=== PATIENT | male | born 1995 | race Two or more races ===

== ENCOUNTER 2025-04-12 05:20 | Inpatient (IN) | payer OTHER ==
[~2025-04-12] VITALS: Ht 182.9 cm; Wt 119.1 kg
[2025-04-12] VITALS (80 sets, daily range): BP systolic 96–155; BP diastolic 52–93; PULSE 91–155; RESP 16–27; TEMP 97.4–98.8; O2SAT 86–99
[2025-04-12] MEDS: PROPOFOL 100 ML IV ONE (05:29)
[2025-04-12] MEDS: SODIUM CHLORIDE 0.9% 1,000 ML IVB ONE (05:30)
[2025-04-12] MEDS: levETIRAcetam 1000 mg/100ml 100 ML IV ONE (05:30)
[2025-04-12] MEDS: PROPOFOL 100 ML IV SCH (05:30)
--- NOTE | 2025-04-12 05:34 | ED.PDOC ---
History of Present Illness HPI Comments 29-year-old, obese male who is brought in by ambulance from private residence for chief complaint of multiple seizures. Per EMS personnel report, patient has been seizing for the past 40 minutes, with no return of consciousness. Family on scene reported on patient being noncompliant with his Keppra medication, lately. On scene blood glucose value of 125. Patient was given 12.5 mg of Versed, IV fluids, and O2 via non-rebreather mask at 12 L/min. Upon arrival to ED, patient is still actively seizing. Further history is limited, due to patient's current condition and absence of family/patient care provider historians. Time Seen by MD: 05:15 Reviewed Notes: Nurses Notes, Automobile Leasing Supervisor Notes, Medications, Allergies (No allergies to medications) Information Source: Emergency Med Personnel Mode of Arrival: EMS Severity: Moderate Timing: Minutes Duration: Minutes Prehospital treatment: 12 Lead EKG, Accucheck, Animal Trainer Supervisor, IVF, Oxygen, Treatment (Versed) Past Medical History PAST MEDICAL HISTORY: Seizures (On Keppra) Surgical History: Unknown, Unobtainable Family History Family History: Unknown, Unobtainable Social History Smoker: Unknown, Unobtainable Alcohol: Unknown, Unobtainable Drugs: Unknown, Unobtainable Lives In: Home Constitutional: denies: chills, diaphoresis, fatigue, fever, malaise, sweats, weakness, others EENTM: denies: blurred vision, double vision, ear bleeding, ear discharge, ear drainage, ear pain, ear ringing, eye pain, eye redness, hearing loss, mouth pain, mouth swelling, nasal discharge, nose bleeding, nose congestion, nose pain, photophobia, tearing, throat pain, throat swelling, voice changes, others Respiratory: denies: cough, hemoptysis, orthopnea, SOB at rest, shortness of breath, SOB with excertion, stridor, wheezing, others Cardiovascular: denies: chest pain, dizzy spells, diaphoresis, Dyspnea on exertion, edema, irregular heart beat, left arm pain, lightheadedness, palpitations, PND, syncope, others Gastrointestinal: denies: abdomen distended, abdominal pain, blood streaked bowels, constipated, diarrhea, dysphagia, difficulty swallowing, hematemesis, melena, nausea, poor appetite, poor fluid intake, rectal bleeding, rectal pain, vomiting, others Genitourinary: denies: burning, dysuria, flank pain, frequency, hematuria, incontinence, penile discharge, penile sore, pain, testicle pain, testicle swelling, urgency, others Neurological: reports: seizure; denies: dizziness, fainting, headache, left sided numbness, left sided weakness, numbness, paresthesia, pre-existing deficit, right sided numbness, right sided weakness, speech problems, tingling, tremors, weakness, others Musculoskeletal: denies: back pain, gout, joint pain, joint swelling, muscle pain, muscle stiffness, neck pain, others Integumetry: denies: bruises, change in color, change in hair/nails, dryness, laceration, lesions, lumps, rash, wounds, others Allergic/Immunocompromised: denies: Difficulty Healing, Frequent Infections, Hives, Itching, others Hematologic/Lymphatic: denies: anemia, blood clots, easy bleeding, easy bruising, swollen glands, others Endocrine: denies: excessive hunger, excessive sweating, excessive thirst, excessive urination, flushing, intolerance to cold, intolerance to heat, unexplained weight gain, unexplained weight loss, others Psychiatric: denies: anxiety, bipolar disorder, depression, hopeless, panic disorder, schizophrenia, sleepless, suicidal, others All Other Systems: Reviewed and Negative Physical Exam General Appearance: Obese, Severe Distress, Other (Severe distress) HEENT: Pharynx Normal, TMs Normal, Other (Pupils are mid-range and responsive) Neck: Non-Tender, Normal, Normal Inspection Respiratory: Accessory Muscle Use, Chest Non-Tender, Respiratory Distress, R honchi Cardiovascular: No Edema, No JVD, No Murmur, No Gallop, Tachycardia Breast Exam: Deferred Gastrointestinal: No Organomegaly, Non Tender, No Pulsatile Mass, Normal Bowel Sounds, Soft Genitalia: Deferred Pelvic: Deferred Rectal: Deferred Extremities: No calf tenderness, Normal capillary refill, Normal range of motion, No pedal edema Musculoskeletal : Apperance: Normal Neurologic: tipple oiler II-XII nml as Tested, Motor Weakness, No Sensory Deficits, Other (Altered mental status) Cerebellar Function: Unable to Test Reflexes: Normal Skin: Dry, Pallor, Warm Lymphatic: No Adenopathy Was a procedure done? Was a procedure done?: Yes Sedation Sedation?: Yes Informed consent obtained: No Sedation start time: 05:20 Sedation end time: 05:25 Sedation total time: 5 minutes Intubation Indication: Respiratory Insufficiency, Altered Mental Status, Airway Protection Prep: Preoxygenation Pretreated with: Nothing Medicated with: Succinylcholine (100 mg), Other (20 mg of etomidate) Intubation Approach: Orotracheal (8.0) Intubation size: cm (25 cm at the lip) Informed consent obtained: No Risks/benefits/alt described: No Differential Dx Considerations may include: Status epilepticus, status seizures, anticonvulsant withdrawal, noncompliance, encephalopathy, among others X-Ray, Labs, Meds, VS Vital Signs Date Time Temp Pulse Resp B/P (MAP) Pulse Ox O2 Delivery O2 Flow Rate FiO2 04/12/25 05:33 100.8 166 16 125/62 94 100.8 Lab Test 04/12/25 05:30 Range/Units White Blood Count Pending Red Blood Count Pending Hemoglobin Pending Hematocrit Pending Mean Corpuscular Volume Pending Mean Corpuscular Hemoglobin Pending Mean Corpuscular Hemoglobin Concent Pending Red Cell Distribution Width Pending Platelet Count Pending Mean Platelet Volume Pending Neutrophils (%) (Auto) Pending Lymphocytes (%) (Auto) Pending Monocytes (%) (Auto) Pending Basophils (%) (Auto) Pending Neutrophils # (Auto) Pending Lymphocytes # (Auto) Pending Monocytes # (Auto) Pending Salicylates Level Pending Acetaminophen Level Pending Plasma/Serum Blood Alcohol Pending The patient is CBC and chemistry panel are pending The CAT scan of the head is pending The patient has a temperature of a 100.8 in his being given acetaminophen per rectum The patient is being sedated with Versed and propofol at this time. We did have to give the patient a dose of 40 mg succinylcholine x2 to stop the patient from removing the endotracheal tube NG tube has been placed. A Currie catheter has also been placed. Currently the patient is under seizure precautions. The patient was started on Keppra 1 g IV piggyback The patient will be sent over for a CAT scan of the head. We continue to monitor the patient's vital signs as he is on the ventilator The patient will be signed out to Dr. Hansen Images Reviewed?: Images reviewed and evaluated by me Time of 1ST Reevaluation: 05:45 Reevaluation 1ST: Unchanged Patient Education/Counseling: Pt Unresponsive Family Education/Counseling: No Family Present SEPSIS Sepsis Screen Physician Orders Complete Blood Count (04/12/25 05:27) Chest Portable (04/12/25 05:27) Pulse Oximetry (04/12/25 05:27) Blood Pressure (04/12/25 05:27) Currie Catheters (04/12/25 05:27) Blood Alcohol (04/12/25 05:27) Drug Screen (04/12/25 05:27) Heplock Iv (04/12/25 05:27) Seizure Precautions (04/12/25 05:27) Sodium Chloride 0.9% (04/12/25 05:30) Animal Trainer Supervisor (04/12/25 05:27) Electrocardigram (04/12/25 05:27) Head Without Contrast (04/12/25 05:27) Salicylate (04/12/25 05:27) Acetaminophen (04/12/25 05:27) Propofol (Diprivan) (04/12/25 05:30) Midazolam Drip 100 Mg/100ml Ns (Versed D (04/12/25 05:30) Rass Sedation Scale Q1HR (04/12/25 05:29) Ngt/Ogt (04/12/25 ) Communication Order (04/12/25 05:31) Currie Catheters (04/12/25 ) Ventilator Orders (04/12/25 05:34) Abg W/ Co-Ox (04/12/25 06:30) Respiratory Culture W/ Gs (04/12/25 05:34) Vital Signs Date Time Temp Pulse Resp B/P (MAP) Pulse Ox O2 Delivery O2 Flow Rate FiO2 04/12/25 05:33 100.8 166 16 125/62 94 100.8 Laboratory Tests Test 04/12/25 05:30 White Blood Count Pending Departure 1 Departure Time of Disposition: 05:50 Impression: Primary Impression: Status epilepticus Disposition: ADMITTED INPATIENT Admit to: ICU Condition: Critical Critical Care Note Critical Care Time?: Yes (45 min-critical care time only) Stability Stability form required: Yes Unstable for transfer: ICU, CCU, PCU, SHAYY (Intensive VS monitoring), May require CPR (possible rapid decline), ED Physician Assesment (Clinical assesment) Heart Score Heart Score: Heart Score Response (Comments) Value History N/A 0 EKG N/A 0 Age N/A 0 Risk Factors N/A 0 Troponin N/A 0 Total 0 I personally scribed for SHASHA HOWARD MD ([email or web address]) on 04/12/25 at 05:34. Electronically submitted by Taiwo Israel [email or web address]). SHASHA HOWARD MD Apr 12, 2025 05:34
[2025-04-12] MEDS: MIDAZOLAM DRIP 100 mg/100mL NS 100 ML IV SCH (05:45)
[2025-04-12 05:56] LABS: Hematocrit 49.3 % (41.0-53.0); Hemoglobin 16.5 g/dL (13.5-17.5); Mean Corpuscular Hemoglobin 29.6 pg (28.0-32.0); Mean Corpuscular Volume 88.3 fL (80.0-100.0)
[2025-04-12 06:04] LABS: Salicylate < 3.0 mg/dL (-30)
[2025-04-12 06:05] LABS: Acetaminophen < 2.0 UG/ML (10.0-20.0)
[2025-04-12] MEDS: MIDAZOLAM DRIP 100 mg/100mL NS 100 ML IV ONE (06:07)
--- NOTE | 2025-04-12 06:08 | DVH ---
CHEST RADIOGRAPH Indication: seizure Technique: Single frontal view of the chest was obtained COMPARISON: None FINDINGS: Lines and Tubes: Endotracheal tube is slightly low in position projecting towards the right mainstem bronchus. Recommend retraction. Possible enteric catheter in the midesophagus. Repositioning required. Lungs: Increased interstitial prominence. This may represent pulmonary vascular congestion and/or viral pneumonia. Pleura: No effusion.No pneumothorax. Cardiomediastinal contours: Cardiomegaly. Bones: Unremarkable IMPRESSION: Endotracheal tube is slightly low in position projecting towards the right mainstem bronchus. Recommend retraction, 1 cm. Possible enteric catheter in the midesophagus. Repositioning required. Cardiomegaly. Increased interstitial prominence. This may represent pulmonary vascular congestion and/or viral pneumonia.
[2025-04-12 06:52] LABS: Base Excess -7.9 mmol/L (-2.0-3.0)
--- NOTE | 2025-04-12 07:16 | ECG ---
[facility] Test Date: 2025-04-12 Test Time: 06:04:34 Pat Name: STEFANY GRIGGS Department: ED Room: [address] [place] [address] Gender: M Business Process Specialist: : 1995 Requested By: SHASHA HOWARD Order Number: [id number] Reading MD: Giovani Trevino Measurements Intervals [place] Rate: 144 P: 63 SD: 106 QRS: 120 QRSD: 101 T: -32 QT: 290 QTc: 449 Interpretive Statements Sinus tachycardia Repol abnrm, probable ischemia, inferior lds ST elevation, consider lateral injury Electronically Signed On 04-14-2025 17:45:26 PST by Giovani Trevino Please click the below link to view image of tracing.
[2025-04-12] MEDS ORDERED: fentaNYL Drip 2500mCg/250mlNS 250 ML IV SCH (07:30)
--- NOTE | 2025-04-12 07:41 | DVH ---
CLINICAL INFORMATION: Seizure. TECHNIQUE: Axial imaging was obtained through the brain without contrast. Coronal and sagittal reformatted images were obtained, reviewed, and stored. Images were reviewed in brain and bone windows. All CT scans at this medical facility are performed using dose modulation techniques as appropriate to a performed exam including the following: Automated exposure control was utilized; adjustment of the MA and/or KV according to patient size; and use of iterative reconstruction technique. CTDIvol = 66.07 mGy DLP = 1189.65 mGy-cm COMPARISON: None FINDINGS: Artifacts limit evaluation. There is no evidence of .acute intracranial hemorrhage. There is encephalomalacia involving the left temporal lobe and left frontal lobe. Scattered areas of hypoattenuation are seen in the periventricular and subcortical white matter, which are nonspecific but most likely sequelae of small vessel ischemic disease. Slightly more focal small areas of encephalomalacia in the right frontal lobe. No midline shift. The ventricles and sulci are within normal limits in size for age. Basal cisterns are patent. There are small focal areas of calcification or ossification along the inner table of the left frontal calvarium measuring up to 0.5 cm and 0.6 cm, respectively, possibly osteomas or small calcified meningiomas. Mild mucosal thickening of the paranasal sinuses. Mastoid air cells are clear. IMPRESSION: 1. Limited examination due to artifact. 2. No evidence of acute intracranial hemorrhage. 3. Sequelae of prior ischemia as described above, with chronic appearance. Superimposed acute or subacute ischemia can not be excluded in the appropriate clinical setting. Correlate with clinical findings. 4. Small focal areas of calcification or ossification along the inner table of the left frontal calvarium, possible osteomas or small calcified meningiomas. If clinically indicated, MRI without and with contrast could be considered to further characterize. 5. Additional nonacute findings as described above.
[2025-04-12 07:44] LABS: Albumin 4.7 g/dL (3.2-4.8); Calcium 9.4 mg/dL (8.7-10.4); Chloride 104 mmol/L (98-107); Potassium 4.5 mmol/L (3.5-5.1); Sodium 143 mmol/L (136-145); Total Protein 7.9 g/dL (5.7-8.2)
[2025-04-12] MEDS: fentaNYL Drip 2500mCg/250mlNS 250 ML IV SCH (07:45)
[2025-04-12 07:46] LABS: Alanine Aminotransferase 48 U/L (7-40); Alkaline Phosphatase 136 U/L (46-116); Bilirubin, Total 0.2 mg/dL (0.2-1.0); Glucose 255 mg/dL (74-106)
[2025-04-12 07:47] LABS: Anion Gap 23 (5-15); BUN/Creatinine Ratio 9.0 (10.0-20.0); Blood Urea Nitrogen 13 mg/dL (9-23); Carbon Dioxide 16 mmol/L (20-31)
[2025-04-12] MEDS ORDERED: NITROGLYCERIN 0.4 MG SL TAB SL PRN (08:15)
[2025-04-12] MEDS ORDERED: DOCUSATE SOD 100 MG CAP PO PRN (08:15)
[2025-04-12] MEDS ORDERED: ONDANSETRON HCL 4 MG/2 ML VIAL IV PRN (08:15)
[2025-04-12] MEDS ORDERED: MORPHINE SULFATE INJ 2 MG/ml SYRG IV PRN (08:15)
[2025-04-12 08:17] LABS: Total Cells Counted 100.0 (100)
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
[2025-04-12 08:41] LABS: Cannabinoid Screen, Urine Pos (NEGATIVE)
[2025-04-12 08:42] LABS: Amphetamine Screen, Urine Neg (NEGATIVE); Barbiturate Scree,Urine Neg (NEGATIVE); Benzodiazephine Screen, Urine Pos (NEGATIVE); Cocaine Screen, Urine Neg (NEGATIVE); Opiate Scree,Urine Neg (NEGATIVE); Phencyclidine Screen, Urine Neg (NEGATIVE)
[2025-04-12] MEDS: ENOXAPARIN SOD 40 MG/0.4 ML SYRINGE SC SCH (09:11)
[2025-04-12] MEDS: PANTOPRAZOLE 40 MG/10 ML VIAL INJ IV SCH (09:11)
[2025-04-12] MEDS: SODIUM CHLORIDE 0.9% 1,000 ML IV ONE (09:30)
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
[2025-04-12] MEDS: SOD CHL 0.45% 1,000 ML IV SCH (11:20)
[2025-04-12 13:01] LABS: Potassium 4.6 mmol/L (3.5-5.1); Sodium 144 mmol/L (136-145)
[2025-04-12 13:02] LABS: Anion Gap 11 (5-15); Carbon Dioxide 22 mmol/L (20-31)
[2025-04-12 13:03] LABS: Calcium 9.0 mg/dL (8.7-10.4)
[2025-04-12 13:06] LABS: Chloride 111 mmol/L (98-107)
[2025-04-12 13:07] LABS: Glucose 87 mg/dL (74-106)
[2025-04-12 13:08] LABS: BUN/Creatinine Ratio 7.6 (10.0-20.0); Blood Urea Nitrogen 12 mg/dL (9-23)
--- NOTE | 2025-04-12 13:30 | DVHPN2 ---
Subjective Patient intubated and sedated. Reviewed: Care Plan, H&P, Labs, Medications Changes from previous H/P or p: No Changes General: Per HPI Objective Vitals Vital Signs Date Time Temp Pulse Resp B/P (MAP) Pulse Ox O2 Delivery O2 Flow Rate FiO2 04/12/25 12:00 108 04/12/25 11:50 98.8 22 129/83 (98) 98 98.8 04/12/25 11:50 Mechanical Ventilator+ 30 30 General Appearance: Alert, Oriented X3, Cooperative HEENT: Atraumatic, PERRLA Lungs: Clear to auscultation, Normal air movement Cardiovascular: Normal S1, Normal S2 Abdomen: Normal bowel sounds, Soft, No tenderness, No hepatospenomegaly Musculoskeletal: Normal sensory function, Normal motor function Skin: Dry, Intact Psych/Mental Status: Mental status NL, Mood NL Medications Current Medications Medications Dose Ordered Sig/Keri Route Start Time Stop Time Status Last Admin Dose Admin Propofol 100 ml @ 4.08 mls/hr Q24H IV 04/12/25 05:30 04/12/25 11:36 40.8 MLS/HR Midazolam HCl 100 ml @ 1 mls/hr Q24H IV 04/12/25 05:30 04/12/25 11:17 15 MLS/HR Fentanyl Citrate 250 ml @ 2.5 mls/hr Q24H IV 04/12/25 07:30 04/12/25 07:45 2.5 MLS/HR Fentanyl Citrate 250 ml @ 2.5 mls/hr Q24H IV 04/12/25 07:30 UNV Ondansetron HCl 4 mg Q4HP PRN IV 04/12/25 08:15 Docusate Sodium 100 mg BIDPRN PRN PO 04/12/25 08:15 Enoxaparin Sodium 40 mg DAILY SC 04/12/25 10:00 04/12/25 09:11 40 MG Acetaminophen 650 mg Q6HP PRN PO 04/12/25 08:15 Nitroglycerin 0.4 mg Q5MINP PRN SL 04/12/25 08:15 Morphine Sulfate 2 mg Q30M PRN IV 04/12/25 08:15 Pantoprazole Sodium 40 mg DAILY IV 04/12/25 10:00 04/12/25 09:11 40 MG Levetiracetam 100 ml @ 400 mls/hr BID IV 04/12/25 22:00 Sodium Chloride 1,000 ml @ 100 mls/hr Q10H IV 04/12/25 09:45 04/12/25 11:20 100 MLS/HR Ceftriaxone Sodium 50 ml @ 100 mls/hr DAILY@09 IV 04/13/25 09:00 Laboratory Results Laboratory Tests 04/12/25 05:30 04/12/25 12:46 Chemistry Test 04/12/25 05:30 04/12/25 12:46 Albumin 4.7 g/dL (3.2-4.8) Calcium Level 9.4 mg/dL (8.7-10.4) 9.0 mg/dL (8.7-10.4) Total Protein 7.9 g/dL (5.7-8.2) LFT Test 04/12/25 05:30 Alanine Aminotransferase (ALT) 48 U/L (7-40) H Alkaline Phosphatase 136 U/L (46-116) H Aspartate Amino Transferase (AST) 36 U/L (13-40) Total Bilirubin 0.2 mg/dL (0.2-1.0) HgA1c, TSH Test 04/12/25 05:30 04/12/25 09:34 Hemoglobin A1c 5.2 % A1C (<5.7) Thyroid Stimulating Hormone (TSH) 2.09 uIU/mL (0.55-4.78) Blood Gas Results Test 04/12/25 06:31 Arterial Blood pH 7.225 (7.350-7.450) FiO2 % 100.0 Labs and/or images reviewed: Labs reviewed by me, Image(s) reviewed by me Assessment/Plan Assessment/Plan Impression: -breakthrough seizures -history of epilepsy after having traumatic brain injury -obesity -questionable medication noncompliance -leukocytosis, rule out sepsis -acute kidney injury, vasomotor nephropathy Plan: -neurology consultation: Recommendations reviewed, MRI pending -continue IV Keppra -continue IV fluids -change vent settings given metabolic and respiratory acidosis. AC 20, tidal volume 500, peep of five -PPI -empiric antibiotic therapy -repeat labs, chest x-ray, ABG in a.m. Critical care time spent with patient discussing and formulating plan of care: 40 minutes. This does not include time spent performing procedures. This medical document was created using an electronic medical record system with Dragon computerized dictation system. Although this document has been carefully reviewed, there may still be some phonetic and typographical errors. These areas are purely typographical due to imperfections of the software programs, and do not reflect any compromise in the patient's medical care. Plan discussed with: Patient, Other (RN) My Orders Orders - VINITA BECKETT NP Procedure Category Date Status Time Ventilator Orders RT 04/12/25 Transmitted 11:26 Mrsa Screen PAUL 04/12/25 Logged 11:54 * Wound Consult CONS 04/12/25 Transmitted * Dietary Consult CONS 04/12/25 Transmitted 12:59 Date of Service: Apr 12, 2025 Billing Provider: VINITA BECKETT NP Common Visit Codes: [id number] DISCH DAY >30min VINITA BECKETT NP Apr 12, 2025 13:30
--- NOTE | 2025-04-12 15:27 | DVH ---
EXAM: MRI BRAIN HEAD WO CONTRAST HISTORY: Seizure, abnormal CT head TECHNIQUE: Multiplanar and multisequence MR imaging of the head was performed. COMPARISON: CT HEAD WITHOUT CONTRAST on DOS: 04/12/25 FINDINGS: There is encephalomalacia and gliosis in the anterior left frontal lobe and the anterior and mid left temporal lobe. There is gliosis along a prior shunt tract in the right frontal lobe. The ventricles and subarachnoid spaces are otherwise normal in size and configuration. There is no midline shift or mass effect. The vascular flow-voids are unremarkable. Diffusion weighted imaging is not indicative of acute or recent infarct. Mild paranasal sinus mucosal thickening. There is endotracheal tube in the visualized oral cavity. IMPRESSION: 1. No acute or recent infarct. 2. Encephalomalacia and gliosis in the anterior left frontal lobe and in the anterior and mid left temporal lobe which could be from remote infarct or remote contusion injury. 3. Linear gliosis along a prior shunt tract in the right frontal lobe.
[2025-04-12] MEDS: levETIRAcetam 1000 mg/100ml 100 ML IV SCH (21:45)
[2025-04-13] VITALS (115 sets, daily range): BP systolic 91–166; BP diastolic 43–102; PULSE 94–121; RESP 17–36; TEMP 98.2–99.9; O2SAT 88–98
[2025-04-13 04:30] LABS: Hematocrit 43.1 % (41.0-53.0); Hemoglobin 15.0 g/dL (13.5-17.5); Mean Corpuscular Hemoglobin 29.8 pg (28.0-32.0); Mean Corpuscular Volume 85.8 fL (80.0-100.0); Nucleated Red Blood Cells % 0.1 %
--- NOTE | 2025-04-13 04:46 | DVH ---
CHEST RADIOGRAPH Indication: ETT placement Technique: Single frontal view of the chest was obtained COMPARISON: XY CHEST PORTABLE on DOS: 04/12/25 FINDINGS: Lines and Tubes: Endotracheal tube and enteric catheter in satisfactory position. Lungs: Low lung volumes. Diffuse increased interstitial prominence, unchanged. Pleura: No effusion. No pneumothorax. Cardiomediastinal contours: Unremarkable Bones: Unremarkable IMPRESSION: Endotracheal tube and enteric catheter in satisfactory position.
[2025-04-13 04:53] LABS: Albumin 4.0 g/dL (3.2-4.8); Alkaline Phosphatase 92 U/L (46-116); Anion Gap 13 (5-15); BUN/Creatinine Ratio 8.0 (10.0-20.0); Bilirubin, Total 0.4 mg/dL (0.2-1.0); Blood Urea Nitrogen 18 mg/dL (9-23); Calcium 9.0 mg/dL (8.7-10.4); Carbon Dioxide 23 mmol/L (20-31); Glucose 92 mg/dL (74-106); Potassium 4.5 mmol/L (3.5-5.1); Total Protein 6.8 g/dL (5.7-8.2)
[2025-04-13 05:00] LABS: Alanine Aminotransferase 79 U/L (7-40); Chloride 110 mmol/L (98-107); Sodium 146 mmol/L (136-145)
[2025-04-13 07:58] LABS: Base Excess -4.9 mmol/L (-2.0-3.0)
--- NOTE | 2025-04-13 09:54 | DVHPN2 ---
Progress Note - Dictate Date Seen: Apr 13, 2025 Medical Necessity Reason Pt with a Central, PICC or Fol: Yes The following are medically ne: Currie Catheter Subjective Mr. Hernandez is a 29 years old right-handed gentleman with a history of closed head trauma, obesity, he was admitted on 04/12/2025 with a chief complaint of frequent seizure activity I have seen and examined the patient, I have talked to his nurse, no seizure activity noticed, the patient is sedated intubated, nonresponsive to strong painful stimuli Fentanyl 100 mcg/hour, Versed 50 mg/hour, propofol 40 mcg/minute, Plasma alcohol, 04/12/2025: <3 ABG, 04/12/2025: Combined respiratory and metabolic acidosis, 04/13/2025: Hypoxia, metabolic acidosis WBC/HB/PLT/MCV, 04/16/2025: 22.8/16.5/346/88.3 BUN/CR, 04/12/2025: 13/1.45 GFR, 04/12/2025: 68 TBI/AST/ALT/AP, 04/12/2025: 0.2/36/48/136 Chest x-ray, 04/12/2025: Increased interstitial prominence. This may represent pulmonary vascular congestion and/or viral pneumonia. CT head, 04/12/2025: 1. Limited examination due to artifact. 2. No evidence of acute intracranial hemorrhage. 3. Sequelae of prior ischemia as described above, with chronic appearance. Superimposed acute or subacute ischemia can not be excluded in the appropriate clinical setting. Correlate with clinical findings. 4. Small focal areas of calcification or ossification along the inner table of the left frontal calvarium, possible osteomas or small calcified meningiomas. If clinically indicated, MRI without and with contrast could be considered to further characterize. 5. Additional nonacute findings as described above. (There is encephalomalacia involving the left temporal lobe and left frontal lobe) MR head, 04/12/25: 1. No acute or recent infarct. 2. Encephalomalacia and gliosis in the anterior left frontal lobe and in the anterior and mid left temporal lobe which could be from remote infarct or remote contusion injury. 3. Linear gliosis along a prior shunt tract in the right frontal lobe. vital signs Vital Sign Date Time Temp Pulse Resp B/P (MAP) Pulse Ox O2 Delivery O2 Flow Rate FiO2 04/13/25 08:16 102 20 116/63 (80) 93 30 04/13/25 05:52 Mechanical Ventilator+ 04/13/25 04:00 99.2 99.2 Total Intake and Output 04/12/25 04/12/25 04/13/25 15:00 23:00 07:00 Intake Total 1714.8 ml 1808.98 ml 1103.48 ml Output Total 600 ml 2100 ml 2100 ml Balance 1114.8 ml -291.02 ml -996.52 ml medications Current Medications Medications Dose Ordered Sig/Keri Route Start Time Stop Time Status Last Admin Dose Admin Propofol 100 ml @ 4.08 mls/hr Q24H IV 04/12/25 05:30 04/13/25 07:13 32.64 MLS/HR Midazolam HCl 100 ml @ 1 mls/hr Q24H IV 04/12/25 05:30 04/13/25 05:06 15 MLS/HR Fentanyl Citrate 250 ml @ 2.5 mls/hr Q24H IV 04/12/25 07:30 04/13/25 07:14 10 MLS/HR Fentanyl Citrate 250 ml @ 2.5 mls/hr Q24H IV 04/12/25 07:30 UNV Ondansetron HCl 4 mg Q4HP PRN IV 04/12/25 08:15 Docusate Sodium 100 mg BIDPRN PRN PO 04/12/25 08:15 Enoxaparin Sodium 40 mg DAILY SC 04/12/25 10:00 04/13/25 08:55 40 MG Acetaminophen 650 mg Q6HP PRN PO 04/12/25 08:15 Nitroglycerin 0.4 mg Q5MINP PRN SL 04/12/25 08:15 Morphine Sulfate 2 mg Q30M PRN IV 04/12/25 08:15 Pantoprazole Sodium 40 mg DAILY IV 04/12/25 10:00 04/13/25 08:54 40 MG Levetiracetam 100 ml @ 400 mls/hr BID IV 04/12/25 22:00 04/13/25 08:54 400 MLS/HR Sodium Chloride 1,000 ml @ 100 mls/hr Q10H IV 04/12/25 09:45 04/13/25 05:25 100 MLS/HR Ceftriaxone Sodium 50 ml @ 100 mls/hr DAILY@09 IV 04/13/25 09:00 04/13/25 08:54 100 MLS/HR Albuterol 2.5 mg Q6HR NEB 04/13/25 12:00 UNV Ipratropium [place] 0.5 mg Q6HR NEB 04/13/25 12:00 UNV objective The patient is well-nourished and well-developed with no distress. The patient is intubated MENTAL STATUS: Subjective CRANIAL NERVES: Pupils are equal, round and nonreactive, very small. There are corneal reflexes and doll's eyes phenomenon. No signs of facial weakness. There are no gagging or coughing reflexes SENSATION: Nonresponsive to strong painful stimuli MOTOR: Normal tone in the upper and lower extremity. Normal muscle bulk. No fasciculations. No spontaneous movement. REFLEXES: Deep tendon reflexes are symmetrical. No pathological reflexes. 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 Poor compliance Acute respiratory failure Metabolic and respiratory acidosis secondary to status epileptics Acute respiratory failure Leukocytosis, to rule out sepsis Assessment/Plan Monitoring Supportive treatment ICU care Follow-up labs EEG Stabilize vitals/pressor drip Respiratory support/vent management Oxygen Keppra 1000 mg b.i.d. Ativan for seizure breakthrough IV antibiotics More recommendation per clinical course This medical document was created using an electronic medical record system with [employer] dictation system. Although this document has been carefully reviewed, there may still be some phonetic and typographical errors. These areas are purely typographical due to imperfections of the software programs, and do not reflect any compromise in the patient's medical care. Prognosis Poor Dietary Evaluation Review Comments: Nutrition Recommendation: 1) EN Vital High Protein @ 40ml/hr x 24hr (goal) along with Pro-stat 1 pk BID. Water flush 50ml Q6H if allowed, adjust PRN. TF at goal volume along with propofol & Pro-stat provide 2022 kcal (100%), 114 gm protein (78%), and 1003 ml free water(including flush). 2) TPN if NPO >7 days 3) Monitor NPO status, lab values, weight trend, and I/O Expected Outcomes/Goals: Intake to meet >75% estimated needs FU 2-3 days Plan discussed with: Other Critical Care Time(min): 35 JEREMY SPENCER MD Apr 13, 2025 09:54
--- NOTE | 2025-04-13 10:53 | DVHPN2 ---
Subjective Patient intubated and sedated. Reviewed: Care Plan, H&P, Labs, Medications Changes from previous H/P or p: No Changes General: Per HPI Eyes: No Pain, No Vision change, No Conjunctivae inflammation, No Eyelid inflammation, No Other, No Redness ENT: No Ear pain, No Ear discharge, No Nose pain, No Nose discharge, No Nose congestion, No Mouth pain, No Mouth swelling, No Throat pain, No Throat swelling, No Other Cardiovascular: No Chest Pain, No Palpitations, No Orthopnea, No Paroxysmal Noc. Dyspnea, No Edema, No Lt Headedness, No Other Respiratory: No Cough, No Dry, No Shortness of breath, No SOB with excertion, No Wheezing, No Hemoptysis, No Pleuritic Pain, No Sputum, No Other Gastrointestinal: No Nausea, No Vomiting, No Abdominal Pain, No Diarrhea, No Constipation, No Melena, No Hematochezia, No Other Genitourinary: No Dysuria, No Frequency, No Incontinence, No Hematuria, No Retention, No Other Musculoskeletal: No other, No neck pain, No shoulder pain, No arm pain, No back pain, No hand pain, No leg pain, No foot pain Skin: No Rash, No Lesions, No Jaundice, No Bruising, No Other Objective Vitals Vital Signs Date Time Temp Pulse Resp B/P (MAP) Pulse Ox O2 Delivery O2 Flow Rate FiO2 04/13/25 10:30 94/58 04/13/25 10:25 96 20 95 30 04/13/25 10:00 Mechanical Ventilator+ 04/13/25 04:00 99.2 99.2 Intake/Output Intake and Output 04/13/25 07:00 Intake Total 4627.26 ml Output Total 4800 ml Balance -172.74 ml Intake Oral 0 ml IV Total 4627.26 ml Output Urine Total 4800 ml General Appearance: Alert, Oriented X3, Cooperative HEENT: Atraumatic, PERRLA Lungs: Clear to auscultation, Normal air movement Cardiovascular: Normal S1, Normal S2 Abdomen: Normal bowel sounds, Soft, No tenderness, No hepatospenomegaly Musculoskeletal: Normal sensory function, Normal motor function Skin: Dry, Intact Psych/Mental Status: Mental status NL, Mood NL Medications Current Medications Medications Dose Ordered Sig/Keri Route Start Time Stop Time Status Last Admin Dose Admin Propofol 100 ml @ 4.08 mls/hr Q24H IV 04/12/25 05:30 04/13/25 10:22 32.64 MLS/HR Midazolam HCl 100 ml @ 1 mls/hr Q24H IV 04/12/25 05:30 04/13/25 05:06 15 MLS/HR Fentanyl Citrate 250 ml @ 2.5 mls/hr Q24H IV 04/12/25 07:30 04/13/25 07:14 10 MLS/HR Fentanyl Citrate 250 ml @ 2.5 mls/hr Q24H IV 04/12/25 07:30 UNV Ondansetron HCl 4 mg Q4HP PRN IV 04/12/25 08:15 Docusate Sodium 100 mg BIDPRN PRN PO 04/12/25 08:15 Enoxaparin Sodium 40 mg DAILY SC 04/12/25 10:00 04/13/25 08:55 40 MG Acetaminophen 650 mg Q6HP PRN PO 04/12/25 08:15 Nitroglycerin 0.4 mg Q5MINP PRN SL 04/12/25 08:15 Morphine Sulfate 2 mg Q30M PRN IV 04/12/25 08:15 Pantoprazole Sodium 40 mg DAILY IV 04/12/25 10:00 04/13/25 08:54 40 MG Levetiracetam 100 ml @ 400 mls/hr BID IV 04/12/25 22:00 04/13/25 08:54 400 MLS/HR Sodium Chloride 1,000 ml @ 100 mls/hr Q10H IV 04/12/25 09:45 04/13/25 05:25 100 MLS/HR Ceftriaxone Sodium 50 ml @ 100 mls/hr DAILY@09 IV 04/13/25 09:00 04/13/25 08:54 100 MLS/HR Albuterol 2.5 mg Q6HR NEB 04/13/25 12:00 Ipratropium [place] 0.5 mg Q6HR NEB 04/13/25 12:00 Laboratory Results Laboratory Tests 04/13/25 03:38 Chemistry Test 04/12/25 12:46 04/13/25 03:38 Calcium Level 9.0 mg/dL (8.7-10.4) 9.0 mg/dL (8.7-10.4) Albumin 4.0 g/dL (3.2-4.8) Total Protein 6.8 g/dL (5.7-8.2) LFT Test 04/13/25 03:38 Alanine Aminotransferase (ALT) 79 U/L (7-40) H Alkaline Phosphatase 92 U/L (46-116) Aspartate Amino Transferase (AST) 80 U/L (13-40) H Total Bilirubin 0.4 mg/dL (0.2-1.0) Blood Gas Results Test 04/13/25 07:26 Arterial Blood pH 7.322 (7.350-7.450) FiO2 % 30.0 Microbiology Microbiology Date/Time Source Procedure Growth Status 04/12/25 05:37 Sputum Gram Stain - Final Resulted 04/12/25 05:37 Sputum Respiratory Culture - Preliminary Resulted Labs and/or images reviewed: Labs reviewed by me, Image(s) reviewed by me Assessment/Plan Assessment/Plan Impression: -breakthrough seizures -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 Leukocytosis improving. Chest x-ray with noted infiltrates. Sputum culture positive for Gram-negative rods. -neurology consultation: Recommendations reviewed, MRI pending -continue IV Keppra -continue IV fluids -continue current ventilator settings. Weaned sedation and perform CPAP trial -bronchodilators -PPI -continue Rocephin, add doxycycline -repeat labs, chest x-ray, ABG in a.m. Critical care time spent with patient discussing and formulating plan of care: 40 minutes. This does not include time spent performing procedures. This medical document was created using an electronic medical record system with [employer] dictation system. Although this document has been carefully reviewed, there may still be some phonetic and typographical errors. These areas are purely typographical due to imperfections of the software programs, and do not reflect any compromise in the patient's medical care. Plan discussed with: Patient, Other (RN) My Orders Orders - VINITA BECKETT CONTINUOUS STILL OPERATOR Procedure Category Date Status Time Ventilator Orders RT 04/12/25 Transmitted 11:26 Mrsa Screen PAUL 04/12/25 In Process 11:54 * Wound Consult CONS 04/12/25 Transmitted * Dietary Consult CONS 04/12/25 Transmitted 12:59 Blood Culture PAUL 04/12/25 In Process 13:10 Chest Portable XY 04/13/25 Resulted 04:00 Ventilator Orders RT 04/13/25 Transmitted 05:37 Albuterol Medneb PHA 04/13/25 In Process (Ventolin Medneb) 12:00 Ipratropium Medneb PHA 04/13/25 In Process (Atrovent Medneb) 12:00 Cpap/Sed Vacation Med ORDERS 04/13/25 Transmitted Weaning 10:25 Date of Service: Apr 13, 2025 Billing Provider: VINITA BECKETT NP Common Visit Codes: [id number] CARE 30-74 MIN VINITA BECKETT NP Apr 13, 2025 10:53
[2025-04-13] MEDS: DOXYCYCLINE 100MG/100ML 100 ML IV SCH (11:37)
[2025-04-13] MEDS: ALBUTEROL SULF 2.5 MG/0.5ML(0.5%) NEB SOLN NEB SCH (12:26)
[2025-04-13] MEDS: IPRATROPIUM BROM 0.5 MG/2.5ML INH SOL NEB SCH (12:26)
--- NOTE | 2025-04-13 23:28 | DVHEEG2 ---
Neurology EEG Procedural Note Procedural Note EXAM DATE: 04/12/2025 REFERRING DOCTOR: Dr. Spencer TECHNIQUE: Eighteen channels of EEG, 2 channels of EOG, and 1 channel of EKG were recorded using the International 10/20 system. CLINICAL DATA: The patient was referred for an EEG evaluation for the evidence of seizure disorder. MEDICATIONS: See the chart BACKGROUND ACTIVITY: The record showed diffuse low amplitude mostly theta activity with occasional delta activity, that was reactive to external stimuli ACTIVATION: Hyperventilation: Not done Photic Stimulation: Not done Sleep: Nonresponsiveness IMPRESSION: This is a mildly to moderately abnormal EEG, this EEG seen in mild to moderate degree cerebral dysfunction due to metabolic/hypoxic encephalopathy or medication effects, please correlate clinically The EKG channel showed a regular heart rate of 108/[place] [address] JEREMY SPENCER MD Apr 13, 2025 23:28
[2025-04-14] VITALS (111 sets, daily range): BP systolic 105–143; BP diastolic 64–88; PULSE 93–110; RESP 15–33; TEMP 98–100.1; O2SAT 90–97
[2025-04-14 03:49] LABS: Hematocrit 42.4 % (41.0-53.0); Hemoglobin 14.6 g/dL (13.5-17.5); Mean Corpuscular Hemoglobin 29.8 pg (28.0-32.0); Mean Corpuscular Volume 86.5 fL (80.0-100.0); Nucleated Red Blood Cells % 0.0 %
[2025-04-14 03:52] LABS: Anion Gap 13 (5-15); Calcium 9.3 mg/dL (8.7-10.4); Carbon Dioxide 23 mmol/L (20-31); Potassium 4.6 mmol/L (3.5-5.1)
[2025-04-14 03:58] LABS: Chloride 111 mmol/L (98-107); Glucose 102 mg/dL (74-106); Sodium 147 mmol/L (136-145)
[2025-04-14 04:23] LABS: BUN/Creatinine Ratio 9.4 (10.0-20.0); Blood Urea Nitrogen 21 mg/dL (9-23)
--- NOTE | 2025-04-14 04:26 | DVH ---
CHEST RADIOGRAPH Indication: pna Technique: Single frontal view of the chest was obtained COMPARISON: XY CHEST PORTABLE on DOS: 04/13/25, XY CHEST PORTABLE on DOS: 04/12/25 FINDINGS: Lines and Tubes: Unchanged. Lungs: Mild diffuse increased prominence of the pulmonary vasculature. Small bilateral pleural effusions. No pneumothorax. Cardiomediastinal contours: Cardiomegaly. Bones: Unremarkable IMPRESSION: 1. Mild pulmonary vascular congestion. 2. Small bilateral pleural effusions. 3. Cardiomegaly. 4. Lines and tubes unchanged.
[2025-04-14 07:34] LABS: Base Excess -5.0 mmol/L (-2.0-3.0)
[2025-04-14] MEDS: FUROSEMIDE 20 MG/2 ML VIAL IV ONE (09:36)
--- NOTE | 2025-04-14 09:36 | DVHPN2 ---
Subjective Patient intubated and sedated. Reviewed: Care Plan, H&P, Labs, Medications Changes from previous H/P or p: No Changes General: Per HPI Eyes: No Pain, No Vision change, No Conjunctivae inflammation, No Eyelid inflammation, No Other, No Redness ENT: No Ear pain, No Ear discharge, No Nose pain, No Nose discharge, No Nose congestion, No Mouth pain, No Mouth swelling, No Throat pain, No Throat swelling, No Other Cardiovascular: No Chest Pain, No Palpitations, No Orthopnea, No Paroxysmal Noc. Dyspnea, No Edema, No Lt Headedness, No Other Respiratory: No Cough, No Dry, No Shortness of breath, No SOB with excertion, No Wheezing, No Hemoptysis, No Pleuritic Pain, No Sputum, No Other Gastrointestinal: No Nausea, No Vomiting, No Abdominal Pain, No Diarrhea, No Constipation, No Melena, No Hematochezia, No Other Genitourinary: No Dysuria, No Frequency, No Incontinence, No Hematuria, No Retention, No Other Musculoskeletal: No other, No neck pain, No shoulder pain, No arm pain, No back pain, No hand pain, No leg pain, No foot pain Skin: No Rash, No Lesions, No Jaundice, No Bruising, No Other Objective Vitals Vital Signs Date Time Temp Pulse Resp B/P (MAP) Pulse Ox O2 Delivery O2 Flow Rate FiO2 04/14/25 07:59 106 21 123/79 (94) 93 30 04/14/25 06:00 Mechanical Ventilator+ 04/14/25 04:00 100.1 100.1 Intake/Output Intake and Output 04/14/25 07:00 Intake Total 3562.85 ml Output Total 1925 ml Balance 1637.85 ml IV Total 3562.85 ml Output Urine Total 1725 ml Other 200 ml General Appearance: Other (Intubated and sedated) HEENT: Atraumatic, PERRLA Lungs: Clear to auscultation, Normal air movement Cardiovascular: Normal S1, Normal S2 Abdomen: Normal bowel sounds, Soft, No tenderness, No hepatospenomegaly Genitourinary: No Apparent Abnormalities (Currie catheter) Musculoskeletal: Normal sensory function, Normal motor function Skin: Dry, Intact Psych/Mental Status: Mental status NL, Mood NL Medications Current Medications Medications Dose Ordered Sig/Keri Route Start Time Stop Time Status Last Admin Dose Admin Propofol 100 ml @ 4.08 mls/hr Q24H IV 04/12/25 05:30 04/14/25 06:07 20.4 MLS/HR Midazolam HCl 100 ml @ 1 mls/hr Q24H IV 04/12/25 05:30 04/14/25 07:49 6 MLS/HR Fentanyl Citrate 250 ml @ 2.5 mls/hr Q24H IV 04/12/25 07:30 04/14/25 00:49 2.5 MLS/HR Fentanyl Citrate 250 ml @ 2.5 mls/hr Q24H IV 04/12/25 07:30 UNV Ondansetron HCl 4 mg Q4HP PRN IV 04/12/25 08:15 Docusate Sodium 100 mg BIDPRN PRN PO 04/12/25 08:15 Enoxaparin Sodium 40 mg DAILY SC 04/12/25 10:00 04/13/25 08:55 40 MG Acetaminophen 650 mg Q6HP PRN PO 04/12/25 08:15 Nitroglycerin 0.4 mg Q5MINP PRN SL 04/12/25 08:15 Morphine Sulfate 2 mg Q30M PRN IV 04/12/25 08:15 Pantoprazole Sodium 40 mg DAILY IV 04/12/25 10:00 04/13/25 08:54 40 MG Levetiracetam 100 ml @ 400 mls/hr BID IV 04/12/25 22:00 04/13/25 21:58 400 MLS/HR Ceftriaxone Sodium 50 ml @ 100 mls/hr DAILY@09 IV 04/13/25 09:00 04/13/25 08:54 100 MLS/HR Albuterol 2.5 mg Q6HR NEB 04/13/25 12:00 04/14/25 06:42 2.5 MG Ipratropium [place] 0.5 mg Q6HR NEB 04/13/25 12:00 04/14/25 06:42 0.5 MG Doxycycline Hyclate 100 ml @ 50 mls/hr Q12H IV 04/13/25 11:00 04/13/25 22:04 50 MLS/HR Laboratory Results Laboratory Tests 04/14/25 02:40 Chemistry Test 04/14/25 02:40 Calcium Level 9.3 mg/dL (8.7-10.4) Blood Gas Results Test 04/14/25 07:21 Arterial Blood pH 7.272 (7.350-7.450) FiO2 % 40.0 Microbiology Microbiology Date/Time Source Procedure Growth Status 04/12/25 14:03 Blood Blood Culture - Preliminary NO GROWTH AFTER 24 HOURS OF INCUBATION. 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 ABG with hypercarbic respiratory failure. Discussed history of patient with family. Apparently patient has had issues with altered mental status going on for one year, with multiple hospitalizations. -neurology consultation: Recommendations reviewed, recommendation reviewed -continue IV Keppra -stop IV fluids. Start tube feeding and free water -IV diuresis -CT scan of the chest -continue current ventilator settings. Wean sedation and perform CPAP trial -bronchodilators -PPI -continue Rocephin, add doxycycline -repeat labs, chest x-ray, ABG in a.m. Critical care time spent with patient discussing and formulating plan of care: 40 minutes. This does not include time spent performing procedures. This medical document was created using an electronic medical record system with [employer] dictation system. Although this document has been carefully reviewed, there may still be some phonetic and typographical errors. These areas are purely typographical due to imperfections of the software programs, and do not reflect any compromise in the patient's medical care. Plan discussed with: Patient, Other (RN) My Orders Orders - VINITA BECKETT NP Procedure Category Date Status Time Albuterol Medneb PHA 04/13/25 In Process (Ventolin Medneb) 12:00 Ipratropium Medneb PHA 04/13/25 In Process (Atrovent Medneb) 12:00 Cpap/Sed Vacation Med ORDERS 04/13/25 Transmitted Weaning 10:25 Doxycycline PHA 04/13/25 In Process 100mg/100ml 11:00 Cpap/Sed Vacation Med ORDERS 04/13/25 Transmitted Weaning 10:50 Cpap Trial For Am ORDERS 04/13/25 Transmitted 10:50 Chest Portable XY 04/14/25 Resulted 04:00 Apply Z-Guard SABINE 04/13/25 In Process 14:22 Urine Bacterial PAUL 04/14/25 Logged Culture 06:34 Cpap/Sed Vacation Med ORDERS 04/14/25 Transmitted Weaning 08:30 Cpap Trial For Am ORDERS 04/14/25 Transmitted 08:30 Basic Metabolic Panel LAB 04/15/25 Verified 04:00 Complete Blood Count LAB 04/15/25 Verified 04:00 Date of Service: Apr 14, 2025 Billing Provider: VINITA BECKETT NP Common Visit Codes: [id number] INP/OBS CARE(HIGH) VINITA BECKETT NP Apr 14, 2025 09:36
[2025-04-14] MEDS ORDERED: Jevity 1.2 Cal/Fiber 1 Liter GT SCH (09:45)
--- NOTE | 2025-04-14 10:46 | DVHPN2 ---
Progress Note - Dictate Date Seen: Apr 14, 2025 Medical Necessity Reason Pt with a Central, PICC or Fol: Yes The following are medically ne: Currie Catheter Subjective Mr. Hernandez is a 29 years old right-handed gentleman with a history of closed head trauma, obesity, he was admitted on 04/12/2025 with a chief complaint of frequent seizure activity I have seen and examined the patient, I have talked to his nurse, no seizure activity noticed, he is sedated intubated, responsive to strong painful stimuli, but no gag reflexes Fentanyl 100 mcg/hour, Versed 6 mg/hour, propofol 25 mcg/minute, FiO2: 40 Plasma alcohol, 04/12/2025: <3 ABG, 04/12/2025: Combined respiratory and metabolic acidosis, 04/13/2025: Hypoxia, metabolic acidosis WBC/HB/PLT/MCV, 04/16/2025: 22.8/16.5/346/88.3 BUN/CR, 04/12/2025: 13/1.45 GFR, 04/12/2025: 68 TBI/AST/ALT/AP, 04/12/2025: 0.2/36/48/136 Chest x-ray, 04/12/2025: Increased interstitial prominence. This may represent pulmonary vascular congestion and/or viral pneumonia. CT head, 04/12/2025: 1. Limited examination due to artifact. 2. No evidence of acute intracranial hemorrhage. 3. Sequelae of prior ischemia as described above, with chronic appearance. Superimposed acute or subacute ischemia can not be excluded in the appropriate clinical setting. Correlate with clinical findings. 4. Small focal areas of calcification or ossification along the inner table of the left frontal calvarium, possible osteomas or small calcified meningiomas. If clinically indicated, MRI without and with contrast could be considered to further characterize. 5. Additional nonacute findings as described above. (There is encephalomalacia involving the left temporal lobe and left frontal lobe) MR head, 04/12/25: 1. No acute or recent infarct. 2. Encephalomalacia and gliosis in the anterior left frontal lobe and in the anterior and mid left temporal lobe which could be from remote infarct or remote contusion injury. 3. Linear gliosis along a prior shunt tract in the right frontal lobe. vital signs Vital Sign Date Time Temp Pulse Resp B/P (MAP) Pulse Ox O2 Delivery O2 Flow Rate FiO2 04/14/25 10:13 101 20 116/73 (87) 96 30 04/14/25 08:00 99.7 99.7 04/14/25 08:00 Mechanical Ventilator+ Total Intake and Output 04/13/25 04/13/25 04/14/25 15:00 23:00 07:00 Intake Total 1294.85 ml 1276.5 ml 991.5 ml Output Total 725 ml 1200 ml Balance 1294.85 ml 551.5 ml -208.5 ml medications Current Medications Medications Dose Ordered Sig/Keri Route Start Time Stop Time Status Last Admin Dose Admin Propofol 100 ml @ 4.08 mls/hr Q24H IV 04/12/25 05:30 04/14/25 09:39 20.4 MLS/HR Midazolam HCl 100 ml @ 1 mls/hr Q24H IV 04/12/25 05:30 04/14/25 07:49 6 MLS/HR Fentanyl Citrate 250 ml @ 2.5 mls/hr Q24H IV 04/12/25 07:30 04/14/25 00:49 2.5 MLS/HR Fentanyl Citrate 250 ml @ 2.5 mls/hr Q24H IV 04/12/25 07:30 UNV Ondansetron HCl 4 mg Q4HP PRN IV 04/12/25 08:15 Docusate Sodium 100 mg BIDPRN PRN PO 04/12/25 08:15 Enoxaparin Sodium 40 mg DAILY SC 04/12/25 10:00 04/14/25 10:25 40 MG Acetaminophen 650 mg Q6HP PRN PO 04/12/25 08:15 Nitroglycerin 0.4 mg Q5MINP PRN SL 04/12/25 08:15 Morphine Sulfate 2 mg Q30M PRN IV 04/12/25 08:15 Pantoprazole Sodium 40 mg DAILY IV 04/12/25 10:00 04/14/25 10:24 40 MG Levetiracetam 100 ml @ 400 mls/hr BID IV 04/12/25 22:00 04/14/25 10:25 400 MLS/HR Ceftriaxone Sodium 50 ml @ 100 mls/hr DAILY@09 IV 04/13/25 09:00 04/14/25 09:33 100 MLS/HR Albuterol 2.5 mg Q6HR NEB 04/13/25 12:00 04/14/25 06:42 2.5 MG Ipratropium [place] 0.5 mg Q6HR NEB 04/13/25 12:00 04/14/25 06:42 0.5 MG Doxycycline Hyclate 100 ml @ 50 mls/hr Q12H IV 04/13/25 11:00 04/13/25 22:04 50 MLS/HR Mupirocin 1 applic BID EACHNOSTRI 04/14/25 10:00 04/19/25 09:59 Enteral Nutritional Formula 1,000 ml 30ML/HR GT 04/14/25 09:45 Purified Water 200 ml Q6HR GT 04/14/25 12:00 objective The patient is well-nourished and well-developed with no distress. The patient is intubated MENTAL STATUS: Subjective CRANIAL NERVES: Pupils are equal, round and nonreactive, very small. There are corneal reflexes and doll's eyes phenomenon. No signs of facial weakness. There are no gagging or coughing reflexes SENSATION: Responsive to strong painful stimuli MOTOR: Normal tone in the upper and lower extremity. Normal muscle bulk. No fasciculations. No spontaneous movement. REFLEXES: Deep tendon reflexes are symmetrical. No pathological reflexes. 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 Poor compliance Acute respiratory failure Metabolic and respiratory acidosis secondary to status epileptics Acute respiratory failure Leukocytosis, to rule out sepsis Assessment/Plan Monitoring Supportive treatment ICU care Follow-up labs EEG Stabilize vitals/pressor drip Respiratory support/vent management Oxygen Keppra 1000 mg b.i.d. Ativan for seizure breakthrough IV antibiotics More recommendation per clinical course This medical document was created using an electronic medical record system with [employer] dictation system. Although this document has been carefully reviewed, there may still be some phonetic and typographical errors. These areas are purely typographical due to imperfections of the software programs, and do not reflect any compromise in the patient's medical care. Prognosis poor Dietary Evaluation Review Comments: Nutrition Recommendation: 1) EN Vital High Protein @ 40ml/hr x 24hr (goal) along with Pro-stat 1 pk BID. Water flush 50ml Q6H if allowed, adjust PRN. TF at goal volume along with propofol & Pro-stat provide 2022 kcal (100%), 114 gm protein (78%), and 1003 ml free water(including flush). 2) TPN if NPO >7 days 3) Monitor NPO status, lab values, weight trend, and I/O Expected Outcomes/Goals: Intake to meet >75% estimated needs FU 2-3 days Plan discussed with: Other Critical Care Time(min): 30 JEREMY SPENCER MD Apr 14, 2025 10:46
[2025-04-14] MEDS: MUPIROCIN 2% OINT 15gm or 22gm FOR MRSA NARES EACHNOSTRI SCH (11:09)
[2025-04-14] MEDS: FREE WATER GT SCH (13:22)
--- NOTE | 2025-04-14 15:34 | DVH ---
Exam: CT CHEST WITHOUT CONTRAST Reason for study/Clinical History: aspiration pna Comparison Study: XY CHEST PORTABLE on DOS: 04/14/25 Exam Date: 04/14/2025 02:54 PM TECHNIQUE: Multidetector CT of the chest was performed from the lung apices to the upper abdomen without the use of intravenous contract. Axial, coronal and sagittal multiplanar reformats were performed. Radiation Dose Information: CT Dose: CTDI volume is 30 mGy. Dose-length product is 1011 mGy*cm The dose indicators for CT are the volume Computed Tomography (CT) Dose Index (CTDIvol) and the Dose Length Product (DLP), and are measured in units of mGy and mGy-cm, respectively. These indicators are not patient dose, but values generated from the CT scanner acquisition factors. The report includes radiation exposure data for exposures received during this examination. Findings: Lower neck: Subcentimeter hypodense right thyroid nodule. Lungs and Pleura: Diffuse bibasilar consolidation with air bronchograms. No pleural effusions. ET tube in the midthoracic inlet. Lymph nodes: No mediastinal, hilar, or axillary lymphadenopathy. Cardiovascular and Mediastinum: No significant pericardial effusion. No significant coronary calcifications. Osseous and soft tissues: No suspicious osseous lesions. Upper abdomen: Hepatic steatosis. Gastric tube in the stomach. IMPRESSION: Bibasilar consolidation suspicious for pneumonia and/or aspiration.
[2025-04-15] VITALS (109 sets, daily range): BP systolic 101–155; BP diastolic 66–102; PULSE 93–132; RESP 18–35; TEMP 98.3–100.1; O2SAT 90–98
[2025-04-15 04:01] LABS: Hematocrit 42.7 % (41.0-53.0); Hemoglobin 14.4 g/dL (13.5-17.5); Mean Corpuscular Hemoglobin 29.6 pg (28.0-32.0); Mean Corpuscular Volume 87.6 fL (80.0-100.0); Nucleated Red Blood Cells % 0.3 %
[2025-04-15 04:11] LABS: Potassium 4.5 mmol/L (3.5-5.1)
[2025-04-15 04:12] LABS: Anion Gap 11 (5-15); Calcium 9.6 mg/dL (8.7-10.4); Carbon Dioxide 24 mmol/L (20-31)
[2025-04-15 04:17] LABS: BUN/Creatinine Ratio 10.1 (10.0-20.0); Blood Urea Nitrogen 17 mg/dL (9-23); Chloride 111 mmol/L (98-107); Glucose 101 mg/dL (74-106); Sodium 146 mmol/L (136-145)
--- NOTE | 2025-04-15 05:52 | DVH ---
CHEST RADIOGRAPH Indication: INTUBATED Technique: XY CHEST PORTABLE COMPARISON: 04/14/2025 FINDINGS: Endotracheal tube tip projects 5.4 cm above the anay. Nasogastric tube projects towards stomach. The cardiac silhouette is enlarged. The lungs demonstrate bilateral patchy airspace opacities, similar to previous examination. The pulmonary vasculature is prominent. Small bilateral pleural effusions, [id number], similar to prior. There is no pneumothorax. IMPRESSION: As above
[2025-04-15 11:02] LABS: Base Excess -2.6 mmol/L (-2.0-3.0)
--- NOTE | 2025-04-15 16:55 | DVHPN2 ---
Subjective Patient is currently intubated and sedated, Reviewed: Care Plan, H&P, Labs, Medications Changes from previous H/P or p: No Changes General: Per HPI Eyes: No Pain, No Vision change, No Conjunctivae inflammation, No Eyelid inflammation, No Other, No Redness ENT: No Ear pain, No Ear discharge, No Nose pain, No Nose discharge, No Nose congestion, No Mouth pain, No Mouth swelling, No Throat pain, No Throat swelling, No Other Cardiovascular: No Chest Pain, No Palpitations, No Orthopnea, No Paroxysmal Noc. Dyspnea, No Edema, No Lt Headedness, No Other Respiratory: No Cough, No Dry, No Shortness of breath, No SOB with excertion, No Wheezing, No Hemoptysis, No Pleuritic Pain, No Sputum, No Other Gastrointestinal: No Nausea, No Vomiting, No Abdominal Pain, No Diarrhea, No Constipation, No Melena, No Hematochezia, No Other Genitourinary: No Dysuria, No Frequency, No Incontinence, No Hematuria, No Retention, No Other Musculoskeletal: No other, No neck pain, No shoulder pain, No arm pain, No back pain, No hand pain, No leg pain, No foot pain Skin: No Rash, No Lesions, No Jaundice, No Bruising, No Other Objective Vitals Vital Signs Date Time Temp Pulse Resp B/P (MAP) Pulse Ox O2 Delivery O2 Flow Rate FiO2 04/15/25 15:36 126 26 141/85 (103) 93 30 04/15/25 15:35 Mechanical Ventilator+ 04/15/25 12:15 98.3 98.3 04/15/25 09:57 30.0 Intake/Output Intake and Output 04/15/25 07:00 Intake Total 2361.8 ml Output Total 3050 ml Balance -688.2 ml Intake Oral 800 ml IV Total 1521.8 ml Tube Feeding 40 ml Output Urine Total 3050 ml Exam HEENT pupils are reactive Neck is supple CV is S1-S2 regular rate and rhythm Diminished breath sounds bases GI positive bowel sound Extremity no edema COMPLAINT CLERK intubated and sedated General Appearance: Other (Intubated and sedated) HEENT: Atraumatic, PERRLA Lungs: Clear to auscultation, Normal air movement Cardiovascular: Normal S1, Normal S2 Abdomen: Normal bowel sounds, Soft, No tenderness, No hepatospenomegaly Genitourinary: No Apparent Abnormalities (Currie catheter) Musculoskeletal: Normal sensory function, Normal motor function Skin: Dry, Intact Psych/Mental Status: Mental status NL, Mood NL Medications Current Medications Medications Dose Ordered Sig/Keri Route Start Time Stop Time Status Last Admin Dose Admin Propofol 100 ml @ 4.08 mls/hr Q24H IV 04/12/25 05:30 04/15/25 16:30 24.48 MLS/HR Midazolam HCl 100 ml @ 1 mls/hr Q24H IV 04/12/25 05:30 04/14/25 07:49 6 MLS/HR Fentanyl Citrate 250 ml @ 2.5 mls/hr Q24H IV 04/12/25 07:30 04/15/25 01:08 10 MLS/HR Fentanyl Citrate 250 ml @ 2.5 mls/hr Q24H IV 04/12/25 07:30 UNV Ondansetron HCl 4 mg Q4HP PRN IV 04/12/25 08:15 Docusate Sodium 100 mg BIDPRN PRN PO 04/12/25 08:15 Enoxaparin Sodium 40 mg DAILY SC 04/12/25 10:00 04/15/25 07:43 40 MG Acetaminophen 650 mg Q6HP PRN PO 04/12/25 08:15 Nitroglycerin 0.4 mg Q5MINP PRN SL 04/12/25 08:15 Morphine Sulfate 2 mg Q30M PRN IV 04/12/25 08:15 Pantoprazole Sodium 40 mg DAILY IV 04/12/25 10:00 04/15/25 07:43 40 MG Levetiracetam 100 ml @ 400 mls/hr BID IV 04/12/25 22:00 04/15/25 07:43 400 MLS/HR Ceftriaxone Sodium 50 ml @ 100 mls/hr DAILY@09 IV 04/13/25 09:00 04/15/25 07:43 100 MLS/HR Albuterol 2.5 mg Q6HR NEB 04/13/25 12:00 04/15/25 11:08 2.5 MG Ipratropium [place] 0.5 mg Q6HR NEB 04/13/25 12:00 04/15/25 11:08 0.5 MG Doxycycline Hyclate 100 ml @ 50 mls/hr Q12H IV 04/13/25 11:00 04/15/25 09:55 50 MLS/HR Mupirocin 1 applic BID EACHNOSTRI 04/14/25 10:00 04/19/25 09:59 04/15/25 07:43 1 APPLIC Enteral Nutritional Formula 1,000 ml 30ML/HR GT 04/14/25 09:45 Purified Water 200 ml Q6HR GT 04/14/25 12:00 04/15/25 12:07 200 ML Laboratory Results Laboratory Tests 04/15/25 03:48 Chemistry Test 04/15/25 03:48 Calcium Level 9.6 mg/dL (8.7-10.4) Blood Gas Results Test 04/15/25 10:58 Arterial Blood pH 7.386 (7.350-7.450) FiO2 % 30.0 Microbiology Microbiology Date/Time Source Procedure Growth Status 04/14/25 05:30 Urine - Currie [place] Urine Culture - Preliminary No growth Resulted 04/12/25 14:03 Blood Blood Culture - Preliminary NO GROWTH AFTER 72 HOURS OF INCUBATION. Resulted 04/12/25 11:53 Nose MRSA Screen - Final Methicillin Resistant S.aureus Complete 04/12/25 05:37 Sputum Gram Stain - Final Complete 04/12/25 05:37 Respiratory Culture - Final Klebsiella pneumoniae Methicillin Resistant S.aureus Complete Assessment/Plan Assessment/Plan 29-year-old male with a known history of traumatic brain injury since childhood, seizure disorder presented to the hospital with a breakthrough seizure and status epilepticus found to have 1. Status epilepticus 2. Acute hypoxic respiratory failure requiring intubation and sedation 3. Sepsis 4. Possible aspiration pneumonia 5. Acute kidney injury suspected secondary to vasomotor nephropathy 6. Leukocytosis -continue seizure medication continue IV antibiotics continue vent support daily ABG chest x-ray. Plan discussed with: Other My Orders Orders - NORMAN SNELL MD Procedure Category Date Status Time Dexmedetomidine Hcl PHA 04/15/25 In Process In D5w (Precedex) 14:45 Complete Blood Count LAB 04/16/25 Verified 04:00 Basic Metabolic Panel LAB 04/16/25 Verified 04:00 Magnesium LAB 04/16/25 Verified 04:00 Chest Portable XY 04/16/25 Logged 04:00 Problem List: (1) Status epilepticus Date of Service: Apr 15, 2025 Billing Provider: NORMAN SNELL MD Common Visit Codes: [id number] INP/OBS CARE(HIGH) NORMAN SNELL MD Apr 15, 2025 16:55
[2025-04-16] VITALS (94 sets, daily range): BP systolic 98–150; BP diastolic 56–107; PULSE 72–124; RESP 13–33; TEMP 97.8–98.8; O2SAT 91–98
[2025-04-16] MEDS: DEXMEDETOMIDINE HCL IN D5W 100 ML IV SCH (00:13)
[2025-04-16 04:25] LABS: Hematocrit 39.0 % (41.0-53.0); Hemoglobin 13.4 g/dL (13.5-17.5); Mean Corpuscular Hemoglobin 29.9 pg (28.0-32.0); Mean Corpuscular Volume 86.6 fL (80.0-100.0); Nucleated Red Blood Cells % 0.2 %
[2025-04-16 04:34] LABS: Anion Gap 12 (5-15); Calcium 10.0 mg/dL (8.7-10.4); Carbon Dioxide 24 mmol/L (20-31); Potassium 3.8 mmol/L (3.5-5.1)
[2025-04-16 04:40] LABS: BUN/Creatinine Ratio 16.3 (10.0-20.0); Blood Urea Nitrogen 21 mg/dL (9-23); Glucose 98 mg/dL (74-106); Magnesium 2.2 mg/dL (1.6-2.6)
[2025-04-16 04:41] LABS: Chloride 112 mmol/L (98-107); Sodium 148 mmol/L (136-145)
--- NOTE | 2025-04-16 04:50 | DVH ---
CHEST RADIOGRAPH Indication: intubated Technique: Single frontal view of the chest was obtained Comparison: XY CHEST PORTABLE on DOS: 04/15/25 FINDINGS: Lines and Tubes: The endotracheal tube terminates 5.6 cm above the anay. The enteric tube courses below the left hemidiaphragm and the tip extends outside the field of view. Lungs: Bilateral airspace opacities and interstitial opacities are unchanged. Pleura: No effusion. No pneumothorax. Cardiomediastinal contours: Unremarkable Bones: No acute osseous abnormality. IMPRESSION: 1. Endotracheal tube terminates 5.6 cm above the anay. 2. Bilateral airspace disease similar to prior study.
[2025-04-16 07:47] LABS: Base Excess -2.9 mmol/L (-2.0-3.0)
--- NOTE | 2025-04-16 09:02 | DVHPN2 ---
Subjective Patient intubated and sedated. Reviewed: Care Plan, H&P, Labs, Medications Changes from previous H/P or p: No Changes General: Per HPI Eyes: No Pain, No Vision change, No Conjunctivae inflammation, No Eyelid inflammation, No Other, No Redness ENT: No Ear pain, No Ear discharge, No Nose pain, No Nose discharge, No Nose congestion, No Mouth pain, No Mouth swelling, No Throat pain, No Throat swelling, No Other Cardiovascular: No Chest Pain, No Palpitations, No Orthopnea, No Paroxysmal Noc. Dyspnea, No Edema, No Lt Headedness, No Other Respiratory: No Cough, No Dry, No Shortness of breath, No SOB with excertion, No Wheezing, No Hemoptysis, No Pleuritic Pain, No Sputum, No Other Gastrointestinal: No Nausea, No Vomiting, No Abdominal Pain, No Diarrhea, No Constipation, No Melena, No Hematochezia, No Other Genitourinary: No Dysuria, No Frequency, No Incontinence, No Hematuria, No Retention, No Other Musculoskeletal: No other, No neck pain, No shoulder pain, No arm pain, No back pain, No hand pain, No leg pain, No foot pain Skin: No Rash, No Lesions, No Jaundice, No Bruising, No Other Objective Vitals Vital Signs Date Time Temp Pulse Resp B/P (MAP) Pulse Ox O2 Delivery O2 Flow Rate FiO2 04/16/25 08:39 92 04/16/25 08:37 28 04/16/25 08:30 91 126/84 (98) 04/16/25 08:30 35 04/16/25 08:00 98.0 98.0 04/16/25 07:45 Mechanical Ventilator+ 04/15/25 09:57 30.0 Intake/Output Intake and Output 04/16/25 07:00 Intake Total 1708.005 ml Output Total 2450 ml Balance -741.995 ml Intake Oral 800 ml IV Total 858.005 ml Tube Feeding 50 ml Output Urine Total 2450 ml General Appearance: Other (Patient is able to follow some commands.) HEENT: Atraumatic, PERRLA Lungs: Clear to auscultation, Normal air movement Cardiovascular: Normal S1, Normal S2 Abdomen: Normal bowel sounds, Soft, No tenderness, No hepatospenomegaly Genitourinary: No Apparent Abnormalities (Currie catheter) Musculoskeletal: Normal sensory function, Normal motor function Skin: Dry, Intact Psych/Mental Status: Mental status NL, Mood NL Medications Current Medications Medications Dose Ordered Sig/Keri Route Start Time Stop Time Status Last Admin Dose Admin Propofol 100 ml @ 4.08 mls/hr Q24H IV 04/12/25 05:30 04/16/25 04:50 24.48 MLS/HR Midazolam HCl 100 ml @ 1 mls/hr Q24H IV 04/12/25 05:30 04/14/25 07:49 6 MLS/HR Fentanyl Citrate 250 ml @ 2.5 mls/hr Q24H IV 04/12/25 07:30 04/15/25 01:08 10 MLS/HR Fentanyl Citrate 250 ml @ 2.5 mls/hr Q24H IV 04/12/25 07:30 UNV Ondansetron HCl 4 mg Q4HP PRN IV 04/12/25 08:15 Docusate Sodium 100 mg BIDPRN PRN PO 04/12/25 08:15 Enoxaparin Sodium 40 mg DAILY SC 04/12/25 10:00 04/16/25 07:24 40 MG Acetaminophen 650 mg Q6HP PRN PO 04/12/25 08:15 Nitroglycerin 0.4 mg Q5MINP PRN SL 04/12/25 08:15 Morphine Sulfate 2 mg Q30M PRN IV 04/12/25 08:15 Pantoprazole Sodium 40 mg DAILY IV 04/12/25 10:00 04/16/25 07:23 40 MG Levetiracetam 100 ml @ 400 mls/hr BID IV 04/12/25 22:00 04/16/25 07:24 400 MLS/HR Ceftriaxone Sodium 50 ml @ 100 mls/hr DAILY@09 IV 04/13/25 09:00 04/16/25 07:24 100 MLS/HR Albuterol 2.5 mg Q6HR NEB 04/13/25 12:00 04/16/25 06:06 2.5 MG Ipratropium [place] 0.5 mg Q6HR NEB 04/13/25 12:00 04/16/25 06:06 0.5 MG Doxycycline Hyclate 100 ml @ 50 mls/hr Q12H IV 04/13/25 11:00 04/16/25 08:42 50 MLS/HR Mupirocin 1 applic BID EACHNOSTRI 04/14/25 10:00 04/19/25 09:59 04/16/25 07:24 1 APPLIC Enteral Nutritional Formula 1,000 ml 30ML/HR GT 04/14/25 09:45 Purified Water 200 ml Q6HR GT 04/14/25 12:00 04/16/25 06:00 200 ML Acetylcysteine 100 mg Q6HR NEB 04/16/25 12:00 Laboratory Results Laboratory Tests 04/16/25 03:18 Chemistry Test 04/16/25 03:18 Calcium Level 10.0 mg/dL (8.7-10.4) Magnesium Level 2.2 mg/dL (1.6-2.6) Blood Gas Results Test 04/15/25 10:58 04/16/25 06:57 Arterial Blood pH 7.386 (7.350-7.450) 7.343 (7.350-7.450) FiO2 % 30.0 30.0 Microbiology Microbiology Date/Time Source Procedure Growth Status 04/14/25 05:30 Urine - Cur[place] Urine Culture - Preliminary No growth Resulted 04/12/25 14:03 Blood Blood Culture - Preliminary NO GROWTH AFTER 72 HOURS OF INCUBATION. Resulted 04/12/25 11:53 Nose MRSA Screen - Final Methicillin Resistant S.aureus Complete 04/12/25 05:37 Sputum Gram Stain - Final Complete 04/12/25 05:37 Respiratory Culture - Final Klebsiella pneumoniae Methicillin Resistant S.aureus Complete Labs and/or images reviewed: Labs reviewed by me, Image(s) reviewed by me Assessment/Plan Assessment/Plan Impression: -breakthrough seizures -history of epilepsy after having traumatic brain injury -obesity -questionable medication noncompliance -leukocytosis, rule out sepsis -acute kidney injury, vasomotor nephropathy -probable aspiration pneumonia Plan: Events: No events overnight. Patient currently on Precedex. Plans for spontaneous breathing trial today. CT scan of the chest reviewed. -neurology consultation: Recommendations reviewed, recommendation reviewed -continue IV Keppra -IV diuresis -CT scan of the chest -continue current ventilator settings. Wean sedation and perform CPAP trial -bronchodilators, add Mucomyst given thick secretions -PPI -continue Rocephin, doxycycline -repeat labs, chest x-ray, ABG in a.m. Critical care time spent with patient discussing and formulating plan of care: 40 minutes. This does not include time spent performing procedures. This medical document was created using an electronic medical record system with [employer] dictation system. Although this document has been carefully reviewed, there may still be some phonetic and typographical errors. These areas are purely typographical due to imperfections of the software programs, and do not reflect any compromise in the patient's medical care. Plan discussed with: Patient, Other (RN) My Orders Orders - VINITA BECKETT NP Procedure Category Date Status Time Abg W/ Co-Ox RT 04/15/25 Logged 10:30 Abg W/ Co-Ox RT 04/16/25 Logged 06:00 Acetylcysteine PHA 04/16/25 In Process Inhalation 10% 12:00 Cpap Trial For Am ORDERS 04/16/25 Transmitted 08:30 Cpap/Sed Vacation Med ORDERS 04/16/25 Transmitted Weaning 08:30 Cpap/Sed Vacation Med ORDERS 04/16/25 Verified Weaning 08:56 Cpap Trial For Am ORDERS 04/16/25 Verified 08:56 Date of Service: Apr 16, 2025 Billing Provider: VINITA BECKETT NP Common Visit Codes: [id number] CARE 30-74 MIN VINITA BEKCETT NP Apr 16, 2025 09:02
[2025-04-16 09:57] LABS: Base Excess -2.0 mmol/L (-2.0-3.0)
[2025-04-16] MEDS ORDERED: ACETYLCYSTEINE 10 %(100MG/ML) SOL 4ML NEB SCH (10:00)
[2025-04-16] MEDS: ACETYLCYSTEINE 10 %(100MG/ML) SOL 4ML NEB SCH (11:06)
--- NOTE | 2025-04-16 15:49 | DVHPN2 ---
Progress Note - Dictate Date Seen: Apr 16, 2025 Medical Necessity Reason Pt with a Central, PICC or Fol: Yes The following are medically ne: Currie Catheter vital signs Vital Sign Date Time Temp Pulse Resp B/P (MAP) Pulse Ox O2 Delivery O2 Flow Rate FiO2 04/16/25 15:32 25 97 Oxymizer 5 N/A 04/16/25 15:32 120 04/16/25 15:30 115/70 (85) 04/16/25 12:00 98.6 98.6 Total Intake and Output 04/15/25 04/15/25 04/16/25 15:00 23:00 07:00 Intake Total 34.98 ml 788.94 ml 884.085 ml Output Total 1450 ml 1000 ml Balance 34.98 ml -661.06 ml -115.915 ml medications Current Medications Medications Dose Ordered Sig/Keri Route Start Time Stop Time Status Last Admin Dose Admin Propofol 100 ml @ 4.08 mls/hr Q24H IV 04/12/25 05:30 04/16/25 04:50 24.48 MLS/HR Midazolam HCl 100 ml @ 1 mls/hr Q24H IV 04/12/25 05:30 04/14/25 07:49 6 MLS/HR Fentanyl Citrate 250 ml @ 2.5 mls/hr Q24H IV 04/12/25 07:30 04/15/25 01:08 10 MLS/HR Fentanyl Citrate 250 ml @ 2.5 mls/hr Q24H IV 04/12/25 07:30 UNV Ondansetron HCl 4 mg Q4HP PRN IV 04/12/25 08:15 Docusate Sodium 100 mg BIDPRN PRN PO 04/12/25 08:15 Enoxaparin Sodium 40 mg DAILY SC 04/12/25 10:00 04/16/25 07:24 40 MG Acetaminophen 650 mg Q6HP PRN PO 04/12/25 08:15 Nitroglycerin 0.4 mg Q5MINP PRN SL 04/12/25 08:15 Morphine Sulfate 2 mg Q30M PRN IV 04/12/25 08:15 Pantoprazole Sodium 40 mg DAILY IV 04/12/25 10:00 04/16/25 07:23 40 MG Levetiracetam 100 ml @ 400 mls/hr BID IV 04/12/25 22:00 04/16/25 07:24 400 MLS/HR Ceftriaxone Sodium 50 ml @ 100 mls/hr DAILY@09 IV 04/13/25 09:00 04/16/25 07:24 100 MLS/HR Albuterol 2.5 mg Q6HR NEB 04/13/25 12:00 04/16/25 11:06 2.5 MG Ipratropium [place] 0.5 mg Q6HR NEB 04/13/25 12:00 04/16/25 11:06 0.5 MG Doxycycline Hyclate 100 ml @ 50 mls/hr Q12H IV 04/13/25 11:00 04/16/25 08:42 50 MLS/HR Mupirocin 1 applic BID EACHNOSTRI 04/14/25 10:00 04/19/25 09:59 04/16/25 07:24 1 APPLIC Enteral Nutritional Formula 1,000 ml 30ML/HR GT 04/14/25 09:45 Purified Water 200 ml Q6HR GT 04/14/25 12:00 04/16/25 06:00 200 ML Acetylcysteine 100 mg Q6HR [facility] 04/16/25 12:00 04/16/25 11:06 100 MG laboratory and microbiology Laboratory Tests 04/16/25 03:18 Test 04/16/25 03:18 Range/Units Serum Glucose 98 74-106 mg/dL Assessment/Plan Cad Draftsman rounds Impression Acute hypoxemic respiratory failure Aspiration pneumonia S/p extubation Seizures Patient seen and examined in ICU Events S/p extubation Low oxygen requirements On 5 liters oxymizer No distress Sputum culture positive for Klebsiella and MRSA Labs and imaging reviewed Chest x-ray shows atelectasis ABG reviewed Management Supplemental oxygen Titrate to maintain sats 90% or above Incentive spirometry Continue antibiotics F/u cultures Bronchodilators Monitor renal function Monitor electrolytes Supplement as needed Antiepileptics as ordered F/u neurology DVT prophylaxis Critical care time 35 minutes Dietary Evaluation Review Comments: Nutrition Recommendation: 1) EN Vital High Protein @ 40ml/hr x 24hr (goal) along with Pro-stat 1 pk BID. Water flush 50ml Q6H if allowed, adjust PRN. TF at goal volume along with propofol & Pro-stat provide 2022 kcal (100%), 114 gm protein (78%), and 1003 ml free water(including flush). 2) TPN if NPO >7 days 3) Monitor NPO status, lab values, weight trend, and I/O Expected Outcomes/Goals: Intake to meet >75% estimated needs FU 2-3 days Plan discussed with: Patient NATALEE LEON MD Apr 16, 2025 15:49
[2025-04-16] MEDS: ACETAMINOPHEN 325 MG TAB PO PRN (20:37)
[2025-04-17] VITALS (34 sets, daily range): BP systolic 136–165; BP diastolic 91–114; PULSE 88–109; RESP 13–34; TEMP 98.3–99.6; O2SAT 89–100
[2025-04-17 04:18] LABS: Hematocrit 39.6 % (41.0-53.0); Hemoglobin 13.5 g/dL (13.5-17.5); Mean Corpuscular Hemoglobin 29.5 pg (28.0-32.0); Mean Corpuscular Volume 86.2 fL (80.0-100.0); Nucleated Red Blood Cells % 0.0 %
[2025-04-17 04:30] LABS: Anion Gap 14 (5-15); Carbon Dioxide 23 mmol/L (20-31); Chloride 105 mmol/L (98-107); Potassium 3.7 mmol/L (3.5-5.1); Sodium 142 mmol/L (136-145)
[2025-04-17 04:32] LABS: Calcium 10.2 mg/dL (8.7-10.4)
[2025-04-17 04:36] LABS: Glucose 89 mg/dL (74-106)
[2025-04-17 04:37] LABS: BUN/Creatinine Ratio 20.2 (10.0-20.0); Blood Urea Nitrogen 21 mg/dL (9-23)
--- NOTE | 2025-04-17 11:56 | DVHPN2 ---
Progress Note - Dictate Date Seen: Apr 17, 2025 Medical Necessity Reason Pt with a Central, PICC or Fol: Yes The following are medically ne: Currie Catheter vital signs Vital Sign Date Time Temp Pulse Resp B/P (MAP) Pulse Ox O2 Delivery O2 Flow Rate FiO2 04/17/25 10:00 108 04/17/25 10:00 24 90 Oxymizer 2 N/A 04/17/25 06:00 04/17/25 04:00 99.0 99.0 Total Intake and Output 04/16/25 04/16/25 04/17/25 15:00 23:00 07:00 Intake Total 36.711 ml 700 ml 1540 ml Output Total 1350 ml 2350 ml Balance 36.711 ml -650 ml -810 ml medications Current Medications Medications Dose Ordered Sig/Keri Route Start Time Stop Time Status Last Admin Dose Admin Propofol 100 ml @ 4.08 mls/hr Q24H IV 04/12/25 05:30 04/16/25 04:50 24.48 MLS/HR Midazolam HCl 100 ml @ 1 mls/hr Q24H IV 04/12/25 05:30 04/14/25 07:49 6 MLS/HR Fentanyl Citrate 250 ml @ 2.5 mls/hr Q24H IV 04/12/25 07:30 04/15/25 01:08 10 MLS/HR Fentanyl Citrate 250 ml @ 2.5 mls/hr Q24H IV 04/12/25 07:30 UNV Ondansetron HCl 4 mg Q4HP PRN IV 04/12/25 08:15 Docusate Sodium 100 mg BIDPRN PRN PO 04/12/25 08:15 Enoxaparin Sodium 40 mg DAILY SC 04/12/25 10:00 04/17/25 09:23 40 MG Acetaminophen 650 mg Q6HP PRN PO 04/12/25 08:15 04/16/25 20:37 650 MG Nitroglycerin 0.4 mg Q5MINP PRN SL 04/12/25 08:15 Morphine Sulfate 2 mg Q30M PRN IV 04/12/25 08:15 Pantoprazole Sodium 40 mg DAILY IV 04/12/25 10:00 04/17/25 09:23 40 MG Levetiracetam 100 ml @ 400 mls/hr BID IV 04/12/25 22:00 04/17/25 09:22 400 MLS/HR Ceftriaxone Sodium 50 ml @ 100 mls/hr DAILY@09 IV 04/13/25 09:00 04/17/25 09:22 100 MLS/HR Albuterol 2.5 mg Q6HR NEB 04/13/25 12:00 04/17/25 06:24 2.5 MG Ipratropium [place] 0.5 mg Q6HR NEB 04/13/25 12:00 04/17/25 06:24 0.5 MG Doxycycline Hyclate 100 ml @ 50 mls/hr Q12H IV 04/13/25 11:00 04/17/25 11:25 50 MLS/HR Mupirocin 1 applic BID EACHNOSTRI 04/14/25 10:00 04/19/25 09:59 04/17/25 09:22 1 APPLIC Enteral Nutritional Formula 1,000 ml 30ML/HR GT 04/14/25 09:45 Purified Water 200 ml Q6HR GT 04/14/25 12:00 04/16/25 06:00 200 ML Acetylcysteine 100 mg Q6HR [facility] 04/16/25 12:00 04/17/25 06:24 100 MG laboratory and microbiology Laboratory Tests 04/17/25 03:55 Test 04/17/25 03:55 Range/Units Serum Glucose 89 74-106 mg/dL Assessment/Plan Auto Overhauler rounds Impression Acute hypoxemic respiratory failure Aspiration pneumonia S/p extubation Seizures Patient seen and examined in ICU Events S/p extubation Low oxygen requirements pneumonia ?aspiration Sputum culture positive for Klebsiella and MRSA Labs and imaging reviewed Chest x-ray shows atelectasis ABG reviewed Management Supplemental oxygen Titrate to maintain sats 90% or above Incentive spirometry Continue antibiotics F/u cultures Bronchodilators Monitor renal function Monitor electrolytes Supplement as needed Antiepileptics as ordered F/u neurology DVT prophylaxis d/grade ok Critical care time 35 minutes Dietary Evaluation Review Comments: Nutrition Recommendation: 1) EN Vital High Protein @ 40ml/hr x 24hr (goal) along with Pro-stat 1 pk BID. Water flush 50ml Q6H if allowed, adjust PRN. TF at goal volume along with propofol & Pro-stat provide 2022 kcal (100%), 114 gm protein (78%), and 1003 ml free water(including flush). 2) TPN if NPO >7 days 3) Monitor NPO status, lab values, weight trend, and I/O Expected Outcomes/Goals: Intake to meet >75% estimated needs FU 2-3 days Plan discussed with: Patient NATALEE LEON MD Apr 17, 2025 11:55
[2025-04-18] VITALS (41 sets, daily range): BP systolic 128–155; BP diastolic 71–104; PULSE 83–121; RESP 15–43; TEMP 98.4–99; O2SAT 89–100
[2025-04-18] MEDS: METOPROLOL TARTRATE 1MG/1ML-5ML VIAL IV ONE (03:40)
[2025-04-18 04:32] LABS: Chloride 106 mmol/L (98-107); Potassium 3.9 mmol/L (3.5-5.1); Sodium 141 mmol/L (136-145)
[2025-04-18 04:33] LABS: Anion Gap 13 (5-15); Carbon Dioxide 22 mmol/L (20-31)
[2025-04-18 04:38] LABS: BUN/Creatinine Ratio 24.5 (10.0-20.0); Blood Urea Nitrogen 23 mg/dL (9-23); Glucose 103 mg/dL (74-106)
[2025-04-18 04:42] LABS: Calcium 10.5 mg/dL (8.7-10.4)
[2025-04-18 04:45] LABS: Hematocrit 44.4 % (41.0-53.0); Hemoglobin 15.1 g/dL (13.5-17.5); Mean Corpuscular Hemoglobin 28.9 pg (28.0-32.0); Mean Corpuscular Volume 85.0 fL (80.0-100.0); Nucleated Red Blood Cells % 0.1 %
--- NOTE | 2025-04-18 11:23 | DVH ---
US LT Upper DVT Indication: RED SWOLLEN LUE Comparison: None Technique: 1. Realtime grayscale and color Doppler ultrasound images of the deep venous structures with spectral waveform analysis were obtained. 2. Doppler spectral waveform analysis of the left upper extremity was performed. Findings: No vascular compression noted within the proximal brachial vein as well as cephalic vein. Internal jugular vein, subclavian vein, axillary vein, basilic vein, radial vein, and ulnar veins are grossly patent. IMPRESSION: No vascular compression noted within the proximal brachial vein as well as cephalic vein raising possibility of underlying thrombus. The above findings were related to the RN by the US technologist per technologist note.
--- NOTE | 2025-04-18 15:29 | DVHPN2 ---
Progress Note - Dictate Date Seen: Apr 18, 2025 Medical Necessity Reason Pt with a Central, PICC or Fol: Yes The following are medically ne: Currie Catheter vital signs Vital Sign Date Time Temp Pulse Resp B/P (MAP) Pulse Ox O2 Delivery O2 Flow Rate FiO2 04/18/25 14:00 98 04/18/25 14:00 23 139/100 (113) 92 04/18/25 14:00 Oxymizer 4 N/A 04/18/25 12:00 98.4 98.4 Total Intake and Output 04/17/25 04/17/25 04/18/25 15:00 23:00 07:00 Intake Total 250 ml 554 ml 480 ml Output Total 1950 ml 1400 ml Balance 250 ml -1396 ml -920 ml medications Current Medications Medications Dose Ordered Sig/Keri Route Start Time Stop Time Status Last Admin Dose Admin Fentanyl Citrate 250 ml @ 2.5 mls/hr Q24H IV 04/12/25 07:30 UNV Ondansetron HCl 4 mg Q4HP PRN IV 04/12/25 08:15 Docusate Sodium 100 mg BIDPRN PRN PO 04/12/25 08:15 Acetaminophen 650 mg Q6HP PRN PO 04/12/25 08:15 04/16/25 20:37 650 MG Nitroglycerin 0.4 mg Q5MINP PRN SL 04/12/25 08:15 Morphine Sulfate 2 mg Q30M PRN IV 04/12/25 08:15 Pantoprazole Sodium 40 mg DAILY IV 04/12/25 10:00 04/18/25 09:11 40 MG Levetiracetam 100 ml @ 400 mls/hr BID IV 04/12/25 22:00 04/18/25 09:34 400 MLS/HR Ceftriaxone Sodium 50 ml @ 100 mls/hr DAILY@09 IV 04/13/25 09:00 04/18/25 09:10 100 MLS/HR Albuterol 2.5 mg Q6HR NEB 04/13/25 12:00 04/18/25 12:03 2.5 MG Ipratropium [place] 0.5 mg Q6HR NEB 04/13/25 12:00 04/18/25 12:03 0.5 MG Doxycycline Hyclate 100 ml @ 50 mls/hr Q12H IV 04/13/25 11:00 04/18/25 11:00 50 MLS/HR Mupirocin 1 applic BID EACHNOSTRI 04/14/25 10:00 04/19/25 09:59 04/18/25 09:11 1 APPLIC Acetylcysteine 100 mg Q6HR NEB 04/16/25 12:00 04/18/25 12:03 100 MG Enoxaparin Sodium 110 mg BID SC 04/18/25 22:00 laboratory and microbiology Laboratory Tests 04/18/25 03:42 Test 04/18/25 03:42 Range/Units Serum Glucose 103 74-106 mg/dL Assessment/Plan Entry Level Account Representative rounds Impression Acute hypoxemic respiratory failure Aspiration pneumonia S/p extubation Seizures Patient seen and examined in ICU Events S/p extubation Low oxygen requirements On 4 liters oxymizer Sputum culture positive for Klebsiella and MRSA Labs and imaging reviewed ABG reviewed Management Supplemental oxygen Titrate to maintain sats 90% or above Incentive spirometry Continue antibiotics F/u cultures Bronchodilators Monitor renal function Monitor electrolytes Supplement as needed Antiepileptics as ordered F/u neurology DVT prophylaxis d/grade ok Critical care time 35 minutes Dietary Evaluation Review Comments: Nutrition Recommendation: 1) EN Vital High Protein @ 40ml/hr x 24hr (goal) along with Pro-stat 1 pk BID. Water flush 50ml Q6H if allowed, adjust PRN. TF at goal volume along with propofol & Pro-stat provide 2022 kcal (100%), 114 gm protein (78%), and 1003 ml free water(including flush). 2) TPN if NPO >7 days 3) Monitor NPO status, lab values, weight trend, and I/O Expected Outcomes/Goals: Intake to meet >75% estimated needs FU 2-3 days Plan discussed with: Patient NATALEE LEON MD Apr 18, 2025 15:29
[2025-04-18] MEDS: ENOXAPARIN SOD 120 MG/0.8 ML SYRINGE SC SCH (20:23)
[2025-04-19] VITALS (22 sets, daily range): BP systolic 116–141; BP diastolic 74–101; PULSE 81–112; RESP 18–36; TEMP 97.5–99; O2SAT 90–100
--- NOTE | 2025-04-19 00:23 | DVHPN2 ---
Reviewed: Care Plan, H&P, Labs, Medications Changes from previous H/P or p: No Changes General: Per HPI Eyes: No Pain, No Vision change, No Conjunctivae inflammation, No Eyelid inflammation, No Other, No Redness ENT: No Ear pain, No Ear discharge, No Nose pain, No Nose discharge, No Nose congestion, No Mouth pain, No Mouth swelling, No Throat pain, No Throat swelling, No Other Cardiovascular: No Chest Pain, No Palpitations, No Orthopnea, No Paroxysmal Noc. Dyspnea, No Edema, No Lt Headedness, No Other Respiratory: No Cough, No Dry, No Shortness of breath, No SOB with excertion, No Wheezing, No Hemoptysis, No Pleuritic Pain, No Sputum, No Other Gastrointestinal: No Nausea, No Vomiting, No Abdominal Pain, No Diarrhea, No Constipation, No Melena, No Hematochezia, No Other Genitourinary: No Dysuria, No Frequency, No Incontinence, No Hematuria, No Retention, No Other Musculoskeletal: No other, No neck pain, No shoulder pain, No arm pain, No back pain, No hand pain, No leg pain, No foot pain Skin: No Rash, No Lesions, No Jaundice, No Bruising, No Other Objective Vitals Vital Signs Date Time Temp Pulse Resp B/P (MAP) Pulse Ox O2 Delivery O2 Flow Rate FiO2 04/19/25 00:05 86 20 94 04/18/25 23:55 Nasal Cannula 2.0 04/18/25 23:55 28 04/18/25 21:00 139/95 (110) 04/18/25 20:22 98.7 Intake/Output Intake and Output 04/19/25 07:00 Intake Total 1840 ml Output Total 1000 ml Balance 840 ml Intake Oral 1590 ml IV Total 250 ml Output Urine Total 1000 ml General Appearance: Alert, Oriented X3, Other (Intubated and sedated) HEENT: Atraumatic, PERRLA Lungs: Clear to auscultation, Normal air movement Cardiovascular: Normal S1, Normal S2 Abdomen: Normal bowel sounds, Soft, No tenderness, No hepatospenomegaly Genitourinary: No Apparent Abnormalities (Currie catheter) Musculoskeletal: Normal sensory function, Normal motor function Skin: Dry, Intact Psych/Mental Status: Mental status NL, Mood NL Medications Current Medications Medications Dose Ordered Sig/Keri Route Start Time Stop Time Status Last Admin Dose Admin Fentanyl Citrate 250 ml @ 2.5 mls/hr Q24H IV 04/12/25 07:30 UNV Ondansetron HCl 4 mg Q4HP PRN IV 04/12/25 08:15 Docusate Sodium 100 mg BIDPRN PRN PO 04/12/25 08:15 Acetaminophen 650 mg Q6HP PRN PO 04/12/25 08:15 04/18/25 20:22 650 MG Nitroglycerin 0.4 mg Q5MINP PRN SL 04/12/25 08:15 Morphine Sulfate 2 mg Q30M PRN IV 04/12/25 08:15 Pantoprazole Sodium 40 mg DAILY IV 04/12/25 10:00 04/18/25 09:11 40 MG Levetiracetam 100 ml @ 400 mls/hr BID IV 04/12/25 22:00 04/18/25 20:22 400 MLS/HR Ceftriaxone Sodium 50 ml @ 100 mls/hr DAILY@09 IV 04/13/25 09:00 04/18/25 09:10 100 MLS/HR Albuterol 2.5 mg Q6HR NEB 04/13/25 12:00 04/18/25 23:54 2.5 MG Ipratropium [place] 0.5 mg Q6HR NEB 04/13/25 12:00 04/18/25 23:54 0.5 MG Doxycycline Hyclate 100 ml @ 50 mls/hr Q12H IV 04/13/25 11:00 04/18/25 11:00 50 MLS/HR Mupirocin 1 applic BID EACHNOSTRI 04/14/25 10:00 04/19/25 09:59 04/18/25 20:23 1 APPLIC Acetylcysteine 100 mg Q6HR NEB 04/16/25 12:00 04/18/25 23:54 100 MG Enoxaparin Sodium 110 mg BID SC 04/18/25 22:00 04/18/25 20:23 110 MG Laboratory Results Laboratory Tests 04/18/25 03:42 Chemistry Test 04/18/25 03:42 Calcium Level 10.5 mg/dL (8.7-10.4) H Microbiology Microbiology Date/Time Source Procedure Growth Status 04/14/25 05:30 Urine - [place] Urine Culture - Final Complete 04/12/25 14:03 Blood Blood Culture - Final NO GROWTH AFTER 5 DAYS OF INCUBATION. 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 Patient currently on Precedex. Plans for spontaneous breathing trial today. CT scan of the chest reviewed. -neurology consultation: Recommendations reviewed, recommendation reviewed -continue IV Keppra -IV diuresis -CT scan of the chest -continue current ventilator settings. Wean sedation and perform CPAP trial -bronchodilators, add Mucomyst given thick secretions -PPI -continue Rocephin, doxycycline -repeat labs, chest x-ray, ABG in a.m. Critical care time spent with patient discussing and formulating plan of care: 40 minutes. This does not include time spent performing procedures. 04/17/2025: pt complained of left arm swelling, will obtain a Doppler Plan discussed with: Patient My Orders Orders - WALLY BLANCHARD DO Procedure Category Date Status Time Enoxaparin Sodium PHA 04/18/25 In Process (Lovenox) 22:00 Date of Service: Apr 17, 2025 Billing Provider: WALLY BLANCHARD DO Common Visit Codes: [id number] CARE 30-74 MIN WALLY BLANCHARD DO Apr 19, 2025 00:23
--- NOTE | 2025-04-19 00:27 | DVHPN2 ---
Reviewed: Care Plan, H&P, Labs, Medications Changes from previous H/P or p: No Changes General: Per HPI Eyes: No Pain, No Vision change, No Conjunctivae inflammation, No Eyelid inflammation, No Other, No Redness ENT: No Ear pain, No Ear discharge, No Nose pain, No Nose discharge, No Nose congestion, No Mouth pain, No Mouth swelling, No Throat pain, No Throat swelling, No Other Cardiovascular: No Chest Pain, No Palpitations, No Orthopnea, No Paroxysmal Noc. Dyspnea, No Edema, No Lt Headedness, No Other Respiratory: No Cough, No Dry, No Shortness of breath, No SOB with excertion, No Wheezing, No Hemoptysis, No Pleuritic Pain, No Sputum, No Other Gastrointestinal: No Nausea, No Vomiting, No Abdominal Pain, No Diarrhea, No Constipation, No Melena, No Hematochezia, No Other Genitourinary: No Dysuria, No Frequency, No Incontinence, No Hematuria, No Retention, No Other Musculoskeletal: No other, No neck pain, No shoulder pain, No arm pain, No back pain, No hand pain, No leg pain, No foot pain Skin: No Rash, No Lesions, No Jaundice, No Bruising, No Other Objective Vitals Vital Signs Date Time Temp Pulse Resp B/P (MAP) Pulse Ox O2 Delivery O2 Flow Rate FiO2 04/19/25 00:05 86 20 94 04/18/25 23:55 Nasal Cannula 2.0 04/18/25 23:55 28 04/18/25 21:00 139/95 (110) 04/18/25 20:22 98.7 Intake/Output Intake and Output 04/19/25 07:00 Intake Total 1840 ml Output Total 1000 ml Balance 840 ml Intake Oral 1590 ml IV Total 250 ml Output Urine Total 1000 ml General Appearance: Alert, Oriented X3, Other (Intubated and sedated) HEENT: Atraumatic, PERRLA Lungs: Clear to auscultation, Normal air movement Cardiovascular: Normal S1, Normal S2 Abdomen: Normal bowel sounds, Soft, No tenderness, No hepatospenomegaly Genitourinary: No Apparent Abnormalities (Currie catheter) Musculoskeletal: Normal sensory function, Normal motor function Skin: Dry, Intact Psych/Mental Status: Mental status NL, Mood NL Medications Current Medications Medications Dose Ordered Sig/Keri Route Start Time Stop Time Status Last Admin Dose Admin Fentanyl Citrate 250 ml @ 2.5 mls/hr Q24H IV 04/12/25 07:30 UNV Ondansetron HCl 4 mg Q4HP PRN IV 04/12/25 08:15 Docusate Sodium 100 mg BIDPRN PRN PO 04/12/25 08:15 Acetaminophen 650 mg Q6HP PRN PO 04/12/25 08:15 04/18/25 20:22 650 MG Nitroglycerin 0.4 mg Q5MINP PRN SL 04/12/25 08:15 Morphine Sulfate 2 mg Q30M PRN IV 04/12/25 08:15 Pantoprazole Sodium 40 mg DAILY IV 04/12/25 10:00 04/18/25 09:11 40 MG Levetiracetam 100 ml @ 400 mls/hr BID IV 04/12/25 22:00 04/18/25 20:22 400 MLS/HR Ceftriaxone Sodium 50 ml @ 100 mls/hr DAILY@09 IV 04/13/25 09:00 04/18/25 09:10 100 MLS/HR Albuterol 2.5 mg Q6HR NEB 04/13/25 12:00 04/18/25 23:54 2.5 MG Ipratropium [place] 0.5 mg Q6HR NEB 04/13/25 12:00 04/18/25 23:54 0.5 MG Doxycycline Hyclate 100 ml @ 50 mls/hr Q12H IV 04/13/25 11:00 04/18/25 11:00 50 MLS/HR Mupirocin 1 applic BID EACHNOSTRI 04/14/25 10:00 04/19/25 09:59 04/18/25 20:23 1 APPLIC Acetylcysteine 100 mg Q6HR NEB 04/16/25 12:00 04/18/25 23:54 100 MG Enoxaparin Sodium 110 mg BID SC 04/18/25 22:00 04/18/25 20:23 110 MG Laboratory Results Laboratory Tests 04/18/25 03:42 Chemistry Test 04/18/25 03:42 Calcium Level 10.5 mg/dL (8.7-10.4) H Microbiology Microbiology Date/Time Source Procedure Growth Status 04/14/25 05:30 Urine - [place] Urine Culture - Final Complete 04/12/25 14:03 Blood Blood Culture - Final NO GROWTH AFTER 5 DAYS OF INCUBATION. 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 Patient currently on Precedex. Plans for spontaneous breathing trial today. CT scan of the chest reviewed. -neurology consultation: Recommendations reviewed, recommendation reviewed -continue IV Keppra -IV diuresis -CT scan of the chest -continue current ventilator settings. Wean sedation and perform CPAP trial -bronchodilators, add Mucomyst given thick secretions -PPI -continue Rocephin, doxycycline -repeat labs, chest x-ray, ABG in a.m. Critical care time spent with patient discussing and formulating plan of care: 40 minutes. This does not include time spent performing procedures. 04/17/2025: pt complained of left arm swelling, will obtain a Doppler 04/18/35: started on Lovenox per weight for Left brachial cephalic thrombosis downgrade to med/surg and started PT/OT Plan discussed with: Patient My Orders Orders - WALLY BLANCHARD DO Procedure Category Date Status Time Enoxaparin Sodium PHA 04/18/25 In Process (Lovenox) 22:00 Date of Service: Apr 18, 2025 Billing Provider: WALLY BLANCHARD DO Common Visit Codes: [id number] CARE 30-74 MIN WALLY BLANCHARD DO Apr 19, 2025 00:27
[2025-04-19] MEDS ORDERED: BICT1TAB PO (00:33)
[2025-04-19] MEDS ORDERED: LEVE500T40 PO (00:35)
[2025-04-19 04:01] LABS: Hematocrit 45.0 % (41.0-53.0); Hemoglobin 15.4 g/dL (13.5-17.5); Mean Corpuscular Hemoglobin 28.9 pg (28.0-32.0); Mean Corpuscular Volume 84.6 fL (80.0-100.0); Nucleated Red Blood Cells % 0.3 %
[2025-04-19 04:04] LABS: Anion Gap 13 (5-15); Carbon Dioxide 24 mmol/L (20-31); Chloride 104 mmol/L (98-107); Potassium 3.6 mmol/L (3.5-5.1); Sodium 141 mmol/L (136-145)
[2025-04-19 04:06] LABS: Calcium 10.3 mg/dL (8.7-10.4)
[2025-04-19 04:10] LABS: BUN/Creatinine Ratio 27.2 (10.0-20.0); Glucose 92 mg/dL (74-106)
[2025-04-19 04:17] LABS: Blood Urea Nitrogen 25 mg/dL (9-23)
--- NOTE | 2025-04-19 09:04 | DVH ---
CLINICAL HISTORY: pna TECHNIQUE: Single view of the chest was obtained. COMPARISON: XY CHEST PORTABLE on DOS: 04/16/25, XY CHEST PORTABLE on DOS: 04/15/25, CT CHEST WITHOUT CONTRAST on DOS: 04/14/25, XY CHEST PORTABLE on DOS: 04/14/25, XY CHEST PORTABLE on DOS: 04/13/25 FINDINGS: Endotracheal and nasogastric tubes have been removed. The heart size and pulmonary vasculature are normal. Previous patchy bilateral lung opacities have nearly resolved with mild residual right perihilar opacities. IMPRESSION: Improving appearance of the lungs with mild residual right perihilar opacities.
--- NOTE | 2025-04-19 13:15 | DVHPN2 ---
Subjective Patient intubated and sedated. Reviewed: Care Plan, H&P, Labs, Medications Changes from previous H/P or p: No Changes General: Per HPI Eyes: No Pain, No Vision change, No Conjunctivae inflammation, No Eyelid inflammation, No Other, No Redness ENT: No Ear pain, No Ear discharge, No Nose pain, No Nose discharge, No Nose congestion, No Mouth pain, No Mouth swelling, No Throat pain, No Throat swelling, No Other Cardiovascular: No Chest Pain, No Palpitations, No Orthopnea, No Paroxysmal Noc. Dyspnea, No Edema, No Lt Headedness, No Other Respiratory: No Cough, No Dry, No Shortness of breath, No SOB with excertion, No Wheezing, No Hemoptysis, No Pleuritic Pain, No Sputum, No Other Gastrointestinal: No Nausea, No Vomiting, No Abdominal Pain, No Diarrhea, No Constipation, No Melena, No Hematochezia, No Other Genitourinary: No Dysuria, No Frequency, No Incontinence, No Hematuria, No Retention, No Other Musculoskeletal: No other, No neck pain, No shoulder pain, No arm pain, No back pain, No hand pain, No leg pain, No foot pain Skin: No Rash, No Lesions, No Jaundice, No Bruising, No Other Objective Vitals Vital Signs Date Time Temp Pulse Resp B/P (MAP) Pulse Ox O2 Delivery O2 Flow Rate FiO2 04/19/25 11:44 95 Nasal Cannula 2.0 04/19/25 11:44 95 20 04/19/25 11:44 28 04/19/25 09:00 97.5 141/101 (114) 97.5 Intake/Output Intake and Output 04/19/25 07:00 Intake Total 2320 ml Output Total 2300 ml Balance 20 ml Intake Oral 2070 ml IV Total 250 ml Output Urine Total 2300 ml General Appearance: Alert, Oriented X3 HEENT: Atraumatic, PERRLA Lungs: Clear to auscultation, Normal air movement Cardiovascular: Normal S1, Normal S2 Abdomen: Normal bowel sounds, Soft, No tenderness, No hepatospenomegaly Genitourinary: No Apparent Abnormalities (Currie catheter) Musculoskeletal: Normal sensory function, Normal motor function Skin: Dry, Intact Psych/Mental Status: Mental status NL, Mood NL Medications Current Medications Medications Dose Ordered Sig/Keri Route Start Time Stop Time Status Last Admin Dose Admin Fentanyl Citrate 250 ml @ 2.5 mls/hr Q24H IV 04/12/25 07:30 UNV Ondansetron HCl 4 mg Q4HP PRN IV 04/12/25 08:15 Docusate Sodium 100 mg BIDPRN PRN PO 04/12/25 08:15 Acetaminophen 650 mg Q6HP PRN PO 04/12/25 08:15 04/18/25 20:22 650 MG Nitroglycerin 0.4 mg Q5MINP PRN SL 04/12/25 08:15 Morphine Sulfate 2 mg Q30M PRN IV 04/12/25 08:15 Pantoprazole Sodium 40 mg DAILY IV 04/12/25 10:00 04/19/25 09:08 40 MG Levetiracetam 100 ml @ 400 mls/hr BID IV 04/12/25 22:00 04/19/25 10:05 400 MLS/HR Ceftriaxone Sodium 50 ml @ 100 mls/hr DAILY@09 IV 04/13/25 09:00 04/19/25 09:07 100 MLS/HR Albuterol 2.5 mg Q6HR NEB 04/13/25 12:00 04/19/25 11:44 2.5 MG Ipratropium [place] 0.5 mg Q6HR NEB 04/13/25 12:00 04/19/25 11:44 0.5 MG Doxycycline Hyclate 100 ml @ 50 mls/hr Q12H IV 04/13/25 11:00 04/19/25 11:00 50 MLS/HR Acetylcysteine 100 mg Q6HR NEB 04/16/25 12:00 04/19/25 11:44 100 MG Enoxaparin Sodium 110 mg BID SC 04/18/25 22:00 04/19/25 09:08 110 MG Diphenhydramine HCl 25 mg Q6HP PRN PO 04/19/25 01:45 04/19/25 01:57 25 MG Laboratory Results Laboratory Tests 04/19/25 03:21 Chemistry Test 04/19/25 03:21 Calcium Level 10.3 mg/dL (8.7-10.4) Microbiology Microbiology Date/Time Source Procedure Growth Status 04/14/25 05:30 Urine - [place] Urine Culture - Final Complete 04/12/25 14:03 Blood Blood Culture - Final NO GROWTH AFTER 5 DAYS OF INCUBATION. 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 Patient off of O2 supplementation. Patient ambulating without any difficulties. Repeat chest x-ray with improved opacities. -neurology consultation: Recommendations reviewed, recommendation reviewed -continue IV Keppra -continue bronchodilators -reassess for discharge in a.m. Critical care time spent with patient discussing and formulating plan of care: 40 minutes. This does not include time spent performing procedures. This medical document was created using an electronic medical record system with [employer] dictation system. Although this document has been carefully reviewed, there may still be some phonetic and typographical errors. These areas are purely typographical due to imperfections of the software programs, and do not reflect any compromise in the patient's medical care. Plan discussed with: Patient, Other (RN) My Orders Orders - VINITA BECKETT NP Procedure Category Date Status Time Chest Xray 1 View XY 04/19/25 Resulted 08:10 Date of Service: Apr 19, 2025 Billing Provider: VINITA BECKETT NP Common Visit Codes: [id number] INP/OBS CARE(HIGH) VINITA BECKETT NP Apr 19, 2025 13:15
--- NOTE | 2025-04-19 22:25 | DVHPN2 ---
Progress Note - Dictate Date Seen: Apr 19, 2025 Medical Necessity Reason Pt with a Central, PICC or Fol: Yes The following are medically ne: Currie Catheter Subjective Mr. Hernandez is a 29 years old right-handed gentleman with a history of closed head trauma, obesity, he was admitted on 04/12/2025 with a chief complaint of frequent seizure activity I have seen and examined the patient, I have talked to his nurse and sitter, no seizure activity noticed, he is sedated He is oriented to person place, he is confused, he pulls his lines, his gait is unsteady Plasma alcohol, 04/12/2025: <3 ABG, 04/12/2025: Combined respiratory and metabolic acidosis, 04/13/2025: Hypoxia, metabolic acidosis WBC/HB/PLT/MCV, 04/16/2025: 22.8/16.5/346/88.3 BUN/CR, 04/12/2025: 13/1.45 GFR, 04/12/2025: 68 TBI/AST/ALT/AP, 04/12/2025: 0.2/36/48/136 Chest x-ray, 04/12/2025: Increased interstitial prominence. This may represent pulmonary vascular congestion and/or viral pneumonia. CT head, 04/12/2025: 1. Limited examination due to artifact. 2. No evidence of acute intracranial hemorrhage. 3. Sequelae of prior ischemia as described above, with chronic appearance. Superimposed acute or subacute ischemia can not be excluded in the appropriate clinical setting. Correlate with clinical findings. 4. Small focal areas of calcification or ossification along the inner table of the left frontal calvarium, possible osteomas or small calcified meningiomas. If clinically indicated, MRI without and with contrast could be considered to further characterize. 5. Additional nonacute findings as described above. (There is encephalomalacia involving the left temporal lobe and left frontal lobe) MR head, 04/12/25: 1. No acute or recent infarct. 2. Encephalomalacia and gliosis in the anterior left frontal lobe and in the anterior and mid left temporal lobe which could be from remote infarct or remote contusion injury. 3. Linear gliosis along a prior shunt tract in the right frontal lobe. vital signs Vital Sign Date Time Temp Pulse Resp B/P (MAP) Pulse Ox O2 Delivery O2 Flow Rate FiO2 04/19/25 20:41 100 20 100 04/19/25 20:32 Room Air* 0 21 04/19/25 17:00 98.7 130/94 (106) 98.7 Total Intake and Output 04/18/25 04/18/25 04/19/25 15:00 23:00 07:00 Intake Total 250 ml 1590 ml 480 ml Output Total 1000 ml 1300 ml Balance 250 ml 590 ml -820 ml medications Current Medications Medications Dose Ordered Sig/Keri Route Start Time Stop Time Status Last Admin Dose Admin Fentanyl Citrate 250 ml @ 2.5 mls/hr Q24H IV 04/12/25 07:30 UNV Ondansetron HCl 4 mg Q4HP PRN IV 04/12/25 08:15 Docusate Sodium 100 mg BIDPRN PRN PO 04/12/25 08:15 Acetaminophen 650 mg Q6HP PRN PO 04/12/25 08:15 04/18/25 20:22 650 MG Nitroglycerin 0.4 mg Q5MINP PRN SL 04/12/25 08:15 Morphine Sulfate 2 mg Q30M PRN IV 04/12/25 08:15 Pantoprazole Sodium 40 mg DAILY IV 04/12/25 10:00 04/19/25 09:08 40 MG Levetiracetam 100 ml @ 400 mls/hr BID IV 04/12/25 22:00 04/19/25 21:53 400 MLS/HR Ceftriaxone Sodium 50 ml @ 100 mls/hr DAILY@09 IV 04/13/25 09:00 04/19/25 09:07 100 MLS/HR Albuterol 2.5 mg Q6HR NEB 04/13/25 12:00 04/19/25 20:32 2.5 MG Ipratropium [place] 0.5 mg Q6HR NEB 04/13/25 12:00 04/19/25 20:32 0.5 MG Doxycycline Hyclate 100 ml @ 50 mls/hr Q12H IV 04/13/25 11:00 04/19/25 11:00 50 MLS/HR Acetylcysteine 100 mg Q6HR NEB 04/16/25 12:00 04/19/25 20:32 100 MG Enoxaparin Sodium 110 mg BID SC 04/18/25 22:00 04/19/25 21:54 110 MG Diphenhydramine HCl 25 mg Q6HP PRN PO 04/19/25 01:45 04/19/25 21:53 25 MG Patient Own Medication 1 DAILY PO 04/19/25 16:15 04/19/25 16:55 1 objective The patient is well-nourished and well-developed with no distress. MENTAL STATUS: Subjective CRANIAL NERVES: Pupils are equal, round and reactive. Pupils equal round and reactive, normal eye movement, normal sensorimotor examined in bilateral trigeminal distribution, no facial weakness SENSATION: Okay to pinprick and light touch MOTOR: Normal tone in the upper and lower extremity. Normal muscle bulk. No fasciculations. Muscle power feels fine REFLEXES: Deep tendon reflexes are symmetrical. No pathological reflexes. 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 Poor compliance Acute respiratory failure Metabolic and respiratory acidosis secondary to status epileptics, resolved Acute respiratory failure, resolved Leukocytosis Assessment/Plan Monitoring Supportive treatment Telemetry Keppra 1000 mg b.i.d. Ativan for seizure breakthrough IV antibiotics More recommendation per clinical course This medical document was created using an electronic medical record system with [employer] dictation system. Although this document has been carefully reviewed, there may still be some phonetic and typographical errors. These areas are purely typographical due to imperfections of the software programs, and do not reflect any compromise in the patient's medical care. Prognosis Poor Dietary Evaluation Review Comments: Nutrition Recommendation: 1) EN Vital High Protein @ 40ml/hr x 24hr (goal) along with Pro-stat 1 pk BID. Water flush 50ml Q6H if allowed, adjust PRN. TF at goal volume along with propofol & Pro-stat provide 2022 kcal (100%), 114 gm protein (78%), and 1003 ml free water(including flush). 2) TPN if NPO >7 days 3) Monitor NPO status, lab values, weight trend, and I/O Expected Outcomes/Goals: Intake to meet >75% estimated needs FU 2-3 days Plan discussed with: Other Total Time (mins): 38 JEREMY SPENCER MD Apr 19, 2025 22:24
[2025-04-20] VITALS (14 sets, daily range): BP systolic 108–141; BP diastolic 77–91; PULSE 94–112; RESP 16–19; TEMP 97.9–98.7; O2SAT 91–100
[2025-04-20 04:16] LABS: Hematocrit 47.2 % (37.5-51.0); Hemoglobin 15.8 g/dL (13.0-17.7); MCH 29.4 pg (26.6-33.0); MCHC 33.5 g/dL (31.5-35.7); MCV 88 fL (79-97); RBC 5.37 x10E6/uL (4.14-5.80); RDW 14.0 % (11.6-15.4); WBC 12.5 x10E3/uL (3.4-10.8)
[2025-04-20 07:07] LABS: HIV 1 Antibody Indeterminate (Non Reactive); HIV 2 Antibody Non Reactive (Non Reactive)
[2025-04-20 09:07] LABS: CD4/CD8 Ratio 1.77 (0.92-3.72)
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
[2025-04-20] MEDS ORDERED: BACDST PO (13:53)
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
== END 2025-04-20 16:55 | disposition home or self-care (01) | DRG 870 ==
LOC: EDBD 05:20 → EDSEX 05:20 → ER 05:20 → OVERFLOW 08:03 → ICU WEST 16:00 → TELE-EAST 04-19 04:40
PROVIDERS: ADMIT Nurse Practitioner Acute Care; ATTEND Nurse Practitioner Acute Care
PROC: 0BH17EZ Insertion of Endotracheal Airway into Trachea, Via Natural or Artificial Opening (ICD-10-PCS; principal; 2025-04-12)
PROC: 5A1955Z Respiratory Ventilation, Greater than 96 Consecutive Hours (ICD-10-PCS; 2025-04-12)
DX: A41.9 Sepsis, unspecified organism (principal); J69.0 Pneumonitis due to inhalation of food and vomit; N17.0 Acute kidney failure with tubular necrosis; J96.01 Acute respiratory failure with hypoxia; J18.9 Pneumonia, unspecified organism; G40.401 Other generalized epilepsy and epileptic syndromes, not intractable, with status epilepticus; B96.1 Klebsiella pneumoniae [K. pneumoniae] as the cause of diseases classified elsewhere; E66.9 Obesity, unspecified; G93.89 Other specified disorders of brain; E87.4 Mixed disorder of acid-base balance; Z68.41 Body mass index [BMI] 40.0-44.9, adult; H53.2 Diplopia; F17.200 Nicotine dependence, unspecified, uncomplicated; Z87.820 Personal history of traumatic brain injury; Z91.148 Patient's other noncompliance with medication regimen for other reason; Z83.3 Family history of diabetes mellitus; Z79.899 Other long term (current) drug therapy
CPT/HCPCS: 31500; 36415; 36600; 70450; 70551; 71045; 71250; 80048; 80053; 80307; 80320; 80329; 82550; 82805; 82962; 83036; 83735; 84443; 85007; 85025; 85027; 86360; 86703; 87040; 87070; 87077; 87081; 87086; 87186; 87205; 87389; 93005; 93971; 94002; 94003; 94640; 94668; 95819; 96365; 96375; 97110; 97116; 97163; 97530; 99291; G0378; J2470; J2704